=== PATIENT | female | born 1935 | race Caucasian/White ===

== ENCOUNTER → 2019-05-07 | Outpatient (CLI) | payer MEDICARE, BC ==
[~2019-05-07] MED LIST: ASPI325 PO; ASPI81CH PO; CAL-MAG TABLET1 EACH PO; CENTRUM SILVER1 EAC3 PO; DICLOFENAC SODIUM TOP; EXTRA STRENGTH500 MG PO; FURO40 PO; HYDR1TAB94 PO; IBUP400 PO; INSULANPEN SC; JANUMET XR 50-1 EACH PO; LOSA25 PO; METO50ER PO; OXYACE5T PO; PIOG30 PO; RANI150 PO; TRAM50 PO; Voltaren100 GM TP
== END | disposition home or self-care (01) ==
LOC: LAB SHORT 08:30 → PLD 08:30
DX: L57.0 Actinic keratosis (principal); L28.0 Lichen simplex chronicus; L08.89 Other specified local infections of the skin and subcutaneous tissue
CPT/HCPCS: 88305

== ENCOUNTER → 2020-08-26 | Outpatient (CLI) | payer MEDICARE, BC | LOC: LAB SHORT 07:41 → LAB 07:41 | DX: D04.62 Carcinoma in situ of skin of left upper limb, including shoulder (principal) | CPT/HCPCS: 88305 ==

== ENCOUNTER 2020-09-10 11:55 | Emergency (ER) | payer MEDICARE, BC ==
[~2020-09-10] VITALS: Ht 162.6 cm; Wt 108.9 kg
[2020-09-10 12:49] LABS: Source, Urine Catheter
[2020-09-10 12:56] LABS: Bilirubin, Urine Neg (Neg); Blood, Urine Neg (Neg); Glucose Qualitative, Urine Neg (Neg); Ketones, Urine Neg (Neg); Leukocyte Esterase, Urine Neg (Neg); Nitrite, Urine Neg (Neg); Protein, Urine Neg (Neg); Specific Gravity, Urine 1.015 (1.003-1.022); Urobilinogen, Urine NORM (Normal)
[2020-09-10 12:57] LABS: BASOPHILS ABSOLUTE AUTO 0.04 K/mm3 (0.00-0.23); BASOPHILS PERCENT AUTO 0 % (0-2); EOSINOPHILS ABSOLUTE AUTO 0.13 K/mm3 (0.00-0.68); EOSINOPHILS PERCENT AUTO 1 % (0-6); Hematocrit 36.5 % (33.0-51.0); Hemoglobin 11.5 g/dL (11.5-16.0); IMMATURE GRAN ABSOLUTE AUTO 0.02 K/mm3 (0.00-0.10); IMMATURE GRAN PERCENT AUTO 0 % (0-1); LYMPHOCYTES ABSOLUTE AUTO 2.34 K/mm3 (0.84-5.20); LYMPHOCYTES PERCENT AUTO 23 % (21-46); MONOCYTES ABSOLUTE AUTO 0.92 K/mm3 (0.16-1.47); MONOCYTES PERCENT AUTO 9 % (4-13); Mean Corpuscular HGB 28.5 pg (26.0-34.0); Mean Corpuscular HGB Conc 31.5 g/dL (31.5-36.5); Mean Corpuscular Volume 91 fL (80-100); Mean Platelet Volume 11.8 fL (9.1-12.4); NEUTROPHILS ABSOLUTE AUTO 6.76 K/mm3 (1.96-9.15); NEUTROPHILS PERCENT AUTO 66 % (41-73); Platelet Count 212 K/mm3 (150-400); RDW Coefficient Variation 16.9 % (11.7-14.2); RDW Standard Deviation 56.7 fL (35.1-46.3); Red Blood Cell Count 4.03 M/mm3 (3.80-5.20); White Blood Cell Count 10.21 K/mm3 (4.00-11.30)
[2020-09-10 13:10] LABS: Appearance, Urine Clear (Clear); Color, Urine Yellow (P-Yellow)
[2020-09-10 13:14] LABS: Alanine Aminotransfer (ALT/SGP 22 U/L (12-78); Albumin/Globulin Ratio 0.7 (0.8-1.8); Alk Phos 109 U/L (50-136); Anion Gap 7 mmol/L (6-16); Aspartate Aminotrans (AST/SGOT 25 U/L (12-37); Bilirubin, Total 0.4 mg/dL (0.1-1.0); Blood Urea Nitrogen 37 mg/dL (8-24); Bun/Creatinine Ratio 27.2 (12.0-20.0); CO2, Blood 31 mmol/L (21-32); Calcium, Blood 9.2 mg/dL (8.5-10.1); Chloride, Blood 99 mmol/L (98-108); Creatinine, Blood 1.36 mg/dL (0.40-1.00); Globulin, Blood 4.1 g/dL (2.2-4.0); Glomerular Filtration Rate 39 (60-); Glucose, Blood 162 mg/dL (70-99); Potassium, Blood 3.7 mmol/L (3.5-5.5); Sodium, Blood 137 mmol/L (136-145); Total Protein, Blood 7.1 g/dL (6.4-8.2); Troponin I <0.015 ng/mL (0.000-0.040)
== END 2020-09-10 14:55 | disposition home or self-care (01) ==
LOC: ER 11:55
PROVIDERS: Emergency Medicine
DX: R42 Dizziness and giddiness (principal); R53.1 Weakness; I10 Essential (primary) hypertension; G30.9 Alzheimer's disease, unspecified; F02.80 Dementia in other diseases classified elsewhere, unspecified severity, without behavioral disturbance, psychotic disturbance, mood disturbance, and anxiety; Z79.4 Long term (current) use of insulin; Z88.5 Allergy status to narcotic agent; Z79.899 Other long term (current) drug therapy
CPT/HCPCS: 36415; 80053; 81003; 84484; 85025; 93005; 93010; 96360; 96361; 99284-25

== ENCOUNTER → 2020-10-05 | Outpatient (CLI) | payer MEDICARE, BC | END | disposition home or self-care (01) | LOC: LAB SHORT 08:21 → LAB 08:21 | DX: D49.2 Neoplasm of unspecified behavior of bone, soft tissue, and skin (principal) | CPT/HCPCS: 88305 ==

== ENCOUNTER → 2021-06-08 | Outpatient (CLI) | payer MEDICARE, BC ==
[2021-06-08 19:35] LABS: Hematocrit 37.2 % (33.0-51.0); Mean Corpuscular HGB Conc 32.3 g/dL (31.5-36.5); Mean Corpuscular Volume 93 fL (80-100); Mean Platelet Volume 11.9 fL (9.1-12.4); Platelet Count 177 K/mm3 (150-400); RDW Coefficient Variation 16.3 % (11.7-14.2); RDW Standard Deviation 55.6 fL (35.1-46.3); White Blood Cell Count 9.64 K/mm3 (4.00-11.30)
[2021-06-08 20:09] LABS: Albumin, Blood 3.1 g/dL (3.4-5.0); Albumin/Globulin Ratio 0.8 (0.8-1.8); Bilirubin, Total 0.4 mg/dL (0.1-1.0); Bun/Creatinine Ratio 23.9 (12.0-20.0); Calcium, Blood 9.7 mg/dL (8.5-10.1); Creatinine, Blood 1.34 mg/dL (0.40-1.00); Globulin, Blood 3.9 g/dL (2.2-4.0); Potassium, Blood 3.8 mmol/L (3.5-5.5)
== END | disposition home or self-care (01) ==
LOC: LAB SHORT 16:05 → LAB 16:05
PROVIDERS: Family Medicine
DX: E11.9 Type 2 diabetes mellitus without complications (principal); I10 Essential (primary) hypertension
CPT/HCPCS: 80053; 83036; 85027

== ENCOUNTER → 2023-03-21 | Outpatient (CLI) | payer MEDICARE, BC ==
[2023-03-21 17:11] LABS: Albumin, Blood 3.3 g/dL (3.4-5.0); Albumin/Globulin Ratio 0.9 (0.8-1.8); Bilirubin, Total 0.6 mg/dL (0.1-1.0); Calcium, Blood 9.7 mg/dL (8.5-10.1); Creatinine, Blood 1.86 mg/dL (0.40-1.00); Globulin, Blood 3.7 g/dL (2.2-4.0); Potassium, Blood 4.1 mmol/L (3.5-5.5)
== END ==
LOC: LAB 10:15 → LAB SHORT 10:15 → EDSTATUS 03-06 11:50 → LAB FUT 03-06 11:50
PROVIDERS: Family Medicine
DX: E11.9 Type 2 diabetes mellitus without complications (principal); E78.2 Mixed hyperlipidemia
CPT/HCPCS: 80053; 83036

== ENCOUNTER 2024-06-09 07:03 | Emergency (ER) | payer MEDICARE, BC ==
[~2024-06-09] VITALS: Ht 154.9 cm; Wt 108.9 kg
[2024-06-09 07:11] VITALS: BP 123/76
[2024-06-09 07:42] LABS: BASOPHILS ABSOLUTE AUTO 0.05 K/mm3 (0.00-0.23); BASOPHILS PERCENT AUTO 1 % (0-2); EOSINOPHILS ABSOLUTE AUTO 0.38 K/mm3 (0.00-0.68); EOSINOPHILS PERCENT AUTO 4 % (0-6); Hematocrit 36.7 % (33.0-51.0); Hemoglobin 12.1 g/dL (11.5-16.0); IMMATURE GRAN ABSOLUTE AUTO 0.03 K/mm3 (0.00-0.10); IMMATURE GRAN PERCENT AUTO 0 % (0-1); LYMPHOCYTES ABSOLUTE AUTO 2.44 K/mm3 (0.84-5.20); LYMPHOCYTES PERCENT AUTO 28 % (21-46); MONOCYTES ABSOLUTE AUTO 0.76 K/mm3 (0.16-1.47); MONOCYTES PERCENT AUTO 9 % (4-13); Mean Corpuscular HGB 30.2 pg (26.0-34.0); Mean Corpuscular Volume 92 fL (80-100); NEUTROPHILS ABSOLUTE AUTO 4.93 K/mm3 (1.96-9.15); NEUTROPHILS PERCENT AUTO 58 % (41-73); Platelet Count 172 K/mm3 (150-400); RDW Coefficient Variation 14.6 % (11.7-14.2); RDW Standard Deviation 49.3 fL (35.1-46.3); Red Blood Cell Count 4.01 M/mm3 (3.80-5.20); White Blood Cell Count 8.59 K/mm3 (4.00-11.30)
[2024-06-09 08:02] LABS: Albumin, Blood 2.9 g/dL (3.4-5.0); Albumin/Globulin Ratio 0.9 (0.8-1.8); Bilirubin, Total 0.5 mg/dL (0.1-1.0); Creatinine, Blood 1.59 mg/dL (0.40-1.00); Globulin, Blood 3.2 g/dL (2.2-4.0); Potassium, Blood 3.8 mmol/L (3.5-5.5); Total Protein, Blood 6.1 g/dL (6.4-8.2)
[2024-06-09] MEDS ORDERED: SEMGLEE (Y100 UNIT/2 SC (16:27)
[2024-06-09] MEDS ORDERED: ASPI81CH PO (16:28)
[2024-06-09] MEDS ORDERED: ATOR10 PO (16:29)
[2024-06-09] MEDS ORDERED: FAMO20 PO (16:30)
[2024-06-09] MEDS ORDERED: GABA100 PO (16:31)
[2024-06-09] MEDS ORDERED: LOSARTAN-HCTZ1 EAC6 PO (16:32)
[2024-06-09] MEDS ORDERED: MAGNESIUM OXID400 M1 PO (16:33)
[2024-06-09] MEDS ORDERED: METO50ER PO (16:34)
[2024-06-09] MEDS ORDERED: KLOR-CON 1010 ME1 PO (16:35)
[2024-06-10] MEDS ORDERED: FURO40 PO (12:36)
[2024-06-10] MEDS ORDERED: FLUC200 PO (12:37)
[2024-06-10] MEDS ORDERED: KLAYESTA15 GM TOP (12:40)
[2024-06-10] MEDS ORDERED: Preservision S1 EACH PO (12:41)
[2024-06-10] MEDS ORDERED: Vitamin B Comple1 EA PO (12:42)
[2024-06-10] MEDS ORDERED: OSTEOBIFLEX PO (12:42)
[2024-06-10] MEDS ORDERED: CRANBERRY450 M1 PO (12:43)
[2024-06-10] MEDS ORDERED: CALCIUM 600-VI1 EAC3 PO (12:43)
[2024-06-10] MEDS ORDERED: Magnesium250 MG PO (12:49)
== END 2024-06-09 10:39 | disposition home or self-care (01) ==
LOC: ER 07:03
PROVIDERS: Emergency Medicine
DX: S01.01XA Laceration without foreign body of scalp, initial encounter (principal); S16.1XXA Strain of muscle, fascia and tendon at neck level, initial encounter; E11.9 Type 2 diabetes mellitus without complications; I10 Essential (primary) hypertension; E78.5 Hyperlipidemia, unspecified; M19.90 Unspecified osteoarthritis, unspecified site; W01.0XXA Fall on same level from slipping, tripping and stumbling without subsequent striking against object, initial encounter; Z79.82 Long term (current) use of aspirin; Z79.4 Long term (current) use of insulin; Z79.899 Other long term (current) drug therapy; Z88.5 Allergy status to narcotic agent
CPT/HCPCS: 70450; 72125; 80053; 85025; 93005; 93010

== ENCOUNTER 2024-06-09 13:11 | Inpatient (IN) | payer MEDICARE, BC ==
[~2024-06-09] VITALS: Ht 154.9 cm; Wt 107.7 kg
[~2024-06-09 13:11] MED LIST changes: -CENTRUM SILVER1 EAC3 PO; +DAILY-VITE1 EAC1 PO
[2024-06-09] MEDS ORDERED: Ondansetron HCl 2 MG / ML 2ML Vial IV ONE (14:20)
[2024-06-09] MEDS ORDERED: NS 1,000 ML IV SCH ×2 (14:20→16:20)
[2024-06-09] MEDS ORDERED: FLU VACC TS2024-25(6MOS UP)/PF 45 MCG/0.5 ML SYRINGE IM SCH (16:15)
[2024-06-09] MEDS ORDERED: Zolpidem Tartrate 5 MG Tab PO PRN (16:20)
[2024-06-09] MEDS ORDERED: Ondansetron HCl 2 MG / ML 2ML Vial IV PRN (16:20)
[2024-06-09] MEDS ORDERED: SEMGLEE (Y100 UNIT/2 SC (16:27)
[2024-06-09] MEDS ORDERED: ASPI81CH PO (16:28)
[2024-06-09] MEDS ORDERED: ATOR10 PO (16:29)
[2024-06-09] MEDS ORDERED: Insulin Human Lispro 100 Units/ML 3ML Syringe SC SCH (16:30)
[2024-06-09] MEDS ORDERED: FAMO20 PO (16:30)
[2024-06-09] MEDS ORDERED: GABA100 PO (16:31)
[2024-06-09] MEDS ORDERED: LOSARTAN-HCTZ1 EAC6 PO (16:32)
[2024-06-09] MEDS ORDERED: MAGNESIUM OXID400 M1 PO (16:33)
[2024-06-09] MEDS ORDERED: METO50ER PO (16:34)
[2024-06-09] MEDS ORDERED: KLOR-CON 1010 ME1 PO (16:35)
[2024-06-09] MEDS ORDERED: Metoclopramide HCl 5MG / ML 2ML Vial IV PRN (18:15)
[2024-06-09 18:28] VITALS: BP 140/45
--- NOTE | 2024-06-09 19:11 | NUR ---
ADMIT PT ADMITTED FROM ED AT 1815 FOR SYNCOPE AND FALL AT HOME. PT ALERT AND ORIENTED X 4, VSS, RA. BEDREST ORDERED. PT CAME UP TO UNIT WITH POL STATING COMFORT CARE PHOTO COPY TAKEN AND PLACED IN CHART. SKIN ASSESSMENT DONE WITH CHANEL VASQUEZ, EXCORIATION UNDER BOTH BREASTS AND PANIS WITH MOISTURE, LACERATION ON FOREHEAD R/T FALL AT HOME, SCATTERED BRUISING AND SCABS THROUGHOUT. PT ORIENTED TO ROOM, CALL LIGHT IN REACH, BED IN LOW POSITION, MEAL PROVIDED.
[2024-06-09 19:22] VITALS: BP 136/46
[2024-06-09] MEDS ORDERED: Acetaminophen 500 MG Tab PO PRN (19:35)
[2024-06-09] MEDS ORDERED: Famotidine 10 MG/ML 2ML Vial IV SCH (21:00)
[2024-06-09] MEDS ORDERED: Miconazole Nitrate 2% 85 GM PWD TOP SCH (21:00)
[2024-06-09] MEDS ORDERED: Insulin Glargine-Yfgn 100 Unit/mL 3 ML SYR SC SCH (21:00)
[2024-06-09] MEDS ORDERED: Docusate Sodium 100 MG Cap PO SCH (21:00)
[2024-06-09] MEDS ORDERED: Sennosides 8.6 MG Tab PO SCH (21:00)
[2024-06-10 02:20] VITALS: BP 129/45
[2024-06-10 05:21] LABS: BASOPHILS ABSOLUTE AUTO 0.04 K/mm3 (0.00-0.23); BASOPHILS PERCENT AUTO 1 % (0-2); EOSINOPHILS ABSOLUTE AUTO 0.21 K/mm3 (0.00-0.68); EOSINOPHILS PERCENT AUTO 3 % (0-6); Hematocrit 31.9 % (33.0-51.0); Hemoglobin 10.3 g/dL (11.5-16.0); IMMATURE GRAN ABSOLUTE AUTO 0.02 K/mm3 (0.00-0.10); IMMATURE GRAN PERCENT AUTO 0 % (0-1); LYMPHOCYTES ABSOLUTE AUTO 2.09 K/mm3 (0.84-5.20); LYMPHOCYTES PERCENT AUTO 24 % (21-46); MONOCYTES ABSOLUTE AUTO 0.83 K/mm3 (0.16-1.47); MONOCYTES PERCENT AUTO 10 % (4-13); Mean Corpuscular HGB Conc 32.3 g/dL (31.5-36.5); Mean Corpuscular Volume 93 fL (80-100); Mean Platelet Volume 11.8 fL (9.1-12.4); NEUTROPHILS ABSOLUTE AUTO 5.36 K/mm3 (1.96-9.15); NEUTROPHILS PERCENT AUTO 63 % (41-73); Platelet Count 147 K/mm3 (150-400); RDW Coefficient Variation 15.1 % (11.7-14.2); RDW Standard Deviation 51.4 fL (35.1-46.3); Red Blood Cell Count 3.43 M/mm3 (3.80-5.20); White Blood Cell Count 8.55 K/mm3 (4.00-11.30)
[2024-06-10 05:44] LABS: Albumin, Blood 2.6 g/dL (3.4-5.0); Albumin/Globulin Ratio 0.9 (0.8-1.8); Bilirubin, Total 0.4 mg/dL (0.1-1.0); Bun/Creatinine Ratio 20.3 (12.0-20.0); Calcium, Blood 8.5 mg/dL (8.5-10.1); Creatinine, Blood 1.72 mg/dL (0.40-1.00); Globulin, Blood 2.8 g/dL (2.2-4.0); Potassium, Blood 3.9 mmol/L (3.5-5.5); Total Protein, Blood 5.4 g/dL (6.4-8.2)
--- NOTE | 2024-06-10 05:49 | NUR ---
NOC SUMMARRY- NO DIZZINESS REPORTED. PT GIVEN BED BATH AND ORDERED DESENEX WAS APPLIED TO PT PANUS, GROIN AND UNDER BREASTS. PT GODINEZ TX W/ ORDERED TYLENOL W/ RELIEF. PT STATES SHE HAS DIFFICULTY TAKING MEDS AND REQUESTED MEDS CRUSHED IN APPLESAUCE. BANDAID APPLIED TO SMALL LAC ON FOREHEAD. PT HAS BEEN VOIDING VIA PUREWICK DEVICE. PT HAS BEEN TURNING SELF. HEEL PROTECTORS APPLIED DUE TO SOME REDNESS. PT TOLERATING PO FLUIDS. CALL LIGHT IN REACH.
[2024-06-10 07:17] VITALS: BP 126/36
[2024-06-10] MEDS ORDERED: Potassium Chloride 10 Meq Tablet SA PO SCH (09:00)
[2024-06-10] MEDS ORDERED: Insulin Glargine-Yfgn 100 Unit/mL 3 ML SYR SC SCH (09:00)
[2024-06-10] MEDS ORDERED: Metoprolol Succinate 50 MG TABCR PO SCH (09:00)
[2024-06-10] MEDS ORDERED: Gabapentin 100 MG Cap PO SCH (09:00)
[2024-06-10] MEDS ORDERED: Atorvastatin 10 MG Tab PO SCH (09:00)
[2024-06-10] MEDS ORDERED: Heparin Sodium,Porcine 5,000 UNIT/0.5 ML SDV SC SCH (09:00)
[2024-06-10] MEDS ORDERED: Magnesium Oxide 400 MG Tab PO SCH (09:00)
[2024-06-10] MEDS ORDERED: FURO40 PO (12:36)
[2024-06-10] MEDS ORDERED: FLUC200 PO (12:37)
[2024-06-10] MEDS ORDERED: KLAYESTA15 GM TOP (12:40)
[2024-06-10] MEDS ORDERED: Preservision S1 EACH PO (12:41)
[2024-06-10] MEDS ORDERED: OSTEOBIFLEX PO (12:42)
[2024-06-10] MEDS ORDERED: Vitamin B Comple1 EA PO (12:42)
[2024-06-10] MEDS ORDERED: CALCIUM 600-VI1 EAC3 PO (12:43)
[2024-06-10] MEDS ORDERED: CRANBERRY450 M1 PO (12:43)
[2024-06-10] MEDS ORDERED: Magnesium250 MG PO (12:49)
[2024-06-10 14:59] VITALS: BP 124/45
--- NOTE | 2024-06-10 18:58 | NUR ---
PT WORKED WITH PT, DIZZY WHEN ATTEMPED TO STAND, BACK TO BED. HEAD AND NECK PAIN CONTROLLED WITH PRN TYLENOL X2. PUREWIK IN PLACE, NO BOWEL MOVEMENT THIS SHIFT. DAUGHER AT BEDSIDE, COOPERATIVE WITH CARE, CALLS APPROPRIATELY.
[2024-06-10 19:38] VITALS: BP 130/44
[2024-06-11 02:32] VITALS: BP 124/42
--- NOTE | 2024-06-11 04:38 | NUR ---
NOC SUMMARY- PT HAD NO ISSUES THIS SHIFT. PT HAS RESTED COMFORTABLY. PT VOIDING AND HAD A LARGE BM. PT IS TOLERATING PO. PT GODINEZ AND NECK ACHE TX WITH TYLENOL AND ICE BAGS. PT REPOSITIONED TOLERATED. PT CURRENTLY SLEEPING IN NO DISTRESS. CALL LIGHT IN REACH.
[2024-06-11 07:13] VITALS: BP 135/40
[2024-06-11 09:34] LABS: BASOPHILS ABSOLUTE AUTO 0.03 K/mm3 (0.00-0.23); BASOPHILS PERCENT AUTO 0 % (0-2); EOSINOPHILS ABSOLUTE AUTO 0.54 K/mm3 (0.00-0.68); EOSINOPHILS PERCENT AUTO 5 % (0-6); Hematocrit 32.6 % (33.0-51.0); Hemoglobin 10.7 g/dL (11.5-16.0); IMMATURE GRAN ABSOLUTE AUTO 0.03 K/mm3 (0.00-0.10); IMMATURE GRAN PERCENT AUTO 0 % (0-1); LYMPHOCYTES ABSOLUTE AUTO 2.32 K/mm3 (0.84-5.20); LYMPHOCYTES PERCENT AUTO 21 % (21-46); MONOCYTES ABSOLUTE AUTO 0.93 K/mm3 (0.16-1.47); MONOCYTES PERCENT AUTO 8 % (4-13); Mean Corpuscular HGB 30.7 pg (26.0-34.0); Mean Corpuscular HGB Conc 32.8 g/dL (31.5-36.5); Mean Corpuscular Volume 94 fL (80-100); Mean Platelet Volume 11.7 fL (9.1-12.4); NEUTROPHILS ABSOLUTE AUTO 7.48 K/mm3 (1.96-9.15); NEUTROPHILS PERCENT AUTO 66 % (41-73); Platelet Count 122 K/mm3 (150-400); RDW Coefficient Variation 14.9 % (11.7-14.2); RDW Standard Deviation 50.9 fL (35.1-46.3); Red Blood Cell Count 3.48 M/mm3 (3.80-5.20); White Blood Cell Count 11.33 K/mm3 (4.00-11.30)
[2024-06-11 09:56] LABS: Albumin, Blood 2.4 g/dL (3.4-5.0); Albumin/Globulin Ratio 0.9 (0.8-1.8); Bilirubin, Total 0.3 mg/dL (0.1-1.0); Bun/Creatinine Ratio 18.4 (12.0-20.0); Calcium, Blood 8.3 mg/dL (8.5-10.1); Creatinine, Blood 1.47 mg/dL (0.40-1.00); Globulin, Blood 2.8 g/dL (2.2-4.0); Potassium, Blood 4.2 mmol/L (3.5-5.5); Total Protein, Blood 5.2 g/dL (6.4-8.2)
[2024-06-11 15:49] VITALS: BP 130/46
--- NOTE | 2024-06-11 18:38 | NUR ---
REPORT RECEIVED VERIFIED A/O VSS VERY PLEASENT AND COOPERATIVE WITH CARE. MINIMAL C/O PAIN TO NECK, ICE PACK APPLIED AND MEDICATED PER MAR. PT HAS HAD MULTIPLE SOFT BM, AND IS URINATING VIA PURWIC. SKIN INTACT BUT VERY RED AND IRRITAED, SKIN COVERED WITH POWDER. CALL LIGHT WITHIN REACH PT ABLE TO MAKE NEEDS KNOWN
[2024-06-11 19:17] VITALS: BP 138/51
[2024-06-12 02:16] VITALS: BP 138/47
[2024-06-12 05:35] LABS: BASOPHILS ABSOLUTE AUTO 0.04 K/mm3 (0.00-0.23); BASOPHILS PERCENT AUTO 0 % (0-2); EOSINOPHILS ABSOLUTE AUTO 0.66 K/mm3 (0.00-0.68); EOSINOPHILS PERCENT AUTO 7 % (0-6); Hematocrit 31.7 % (33.0-51.0); Hemoglobin 10.1 g/dL (11.5-16.0); IMMATURE GRAN ABSOLUTE AUTO 0.02 K/mm3 (0.00-0.10); IMMATURE GRAN PERCENT AUTO 0 % (0-1); LYMPHOCYTES ABSOLUTE AUTO 2.13 K/mm3 (0.84-5.20); LYMPHOCYTES PERCENT AUTO 21 % (21-46); MONOCYTES ABSOLUTE AUTO 0.88 K/mm3 (0.16-1.47); MONOCYTES PERCENT AUTO 9 % (4-13); Mean Corpuscular HGB 30.1 pg (26.0-34.0); Mean Corpuscular HGB Conc 31.9 g/dL (31.5-36.5); Mean Corpuscular Volume 95 fL (80-100); Mean Platelet Volume 11.1 fL (9.1-12.4); NEUTROPHILS ABSOLUTE AUTO 6.49 K/mm3 (1.96-9.15); NEUTROPHILS PERCENT AUTO 64 % (41-73); Platelet Count 140 K/mm3 (150-400); RDW Standard Deviation 52.2 fL (35.1-46.3); Red Blood Cell Count 3.35 M/mm3 (3.80-5.20); White Blood Cell Count 10.22 K/mm3 (4.00-11.30)
--- NOTE | 2024-06-12 05:46 | NUR ---
Patient resting quietly in bed on room air, turning with one person assist in bed, incontinent of bowel and bladder overnight. PRN pain medication and ice packs given once each overnight. Patient able to make needs known via call light.
[2024-06-12 05:57] LABS: Albumin, Blood 2.4 g/dL (3.4-5.0); Albumin/Globulin Ratio 0.8 (0.8-1.8); Bilirubin, Total 0.3 mg/dL (0.1-1.0); Bun/Creatinine Ratio 16.9 (12.0-20.0); Calcium, Blood 7.9 mg/dL (8.5-10.1); Creatinine, Blood 1.42 mg/dL (0.40-1.00); Globulin, Blood 2.9 g/dL (2.2-4.0); Potassium, Blood 4.1 mmol/L (3.5-5.5); Total Protein, Blood 5.3 g/dL (6.4-8.2)
[2024-06-12 07:40] VITALS: BP 152/49
[2024-06-12] MEDS ORDERED: HydroCHLOROthiazide 25 mg Tab PO SCH (10:00)
[2024-06-12] MEDS ORDERED: Losartan Potassium 25 MG Tab PO SCH ×2 (10:00)
[2024-06-12] MEDS ORDERED: Fluconazole 100 MG Tab PO SCH (11:00)
[2024-06-12 15:12] VITALS: BP 140/49
--- NOTE | 2024-06-12 19:24 | NUR ---
pt had an uneventful day, lots of family in, had a stool today via bedpan, no acute changes this shift. call light in reach.
[2024-06-12 19:37] VITALS: BP 146/44
[2024-06-13 03:31] VITALS: BP 140/44
--- NOTE | 2024-06-13 04:51 | NUR ---
PT IS A 88 YO DNR WOMAN. PT WAS ADMITTED 06/09/24 [facility]. PT HAS HAD A HIST OF FALLS AT HER HOME, SHE LIVES ALONE. SHE HAS A RIGHT FAITH WOUND WITH SUTURES AND A BRUISED FOREHEAD. PT IS BED BOUND BUT A&OX4. PT IS ON TELE SVT SR IN THE 70'S. PT DID HAVE A 6 SECOND EPISODE OF V-TACH TONIGHT. PT IS INCONTINET TO URINE AND USES A PURE WICK. PT WILL CALL TO USE A BED HUTCHINS FOR STOOL. MEPILEX ON COCCYX. PT HAS A HIST OF TYPE 2 DIABETES AND KIDNEY FAILURE. PT HAS RESTED MOST OF THE SHIFT AND MAKES HER NEEDS KNOWN. CALL LIGHT IN REACH.
[2024-06-13 07:46] LABS: BASOPHILS ABSOLUTE AUTO 0.05 K/mm3 (0.00-0.23); BASOPHILS PERCENT AUTO 1 % (0-2); EOSINOPHILS ABSOLUTE AUTO 0.55 K/mm3 (0.00-0.68); EOSINOPHILS PERCENT AUTO 6 % (0-6); Hematocrit 30.9 % (33.0-51.0); Hemoglobin 9.9 g/dL (11.5-16.0); IMMATURE GRAN ABSOLUTE AUTO 0.03 K/mm3 (0.00-0.10); IMMATURE GRAN PERCENT AUTO 0 % (0-1); LYMPHOCYTES ABSOLUTE AUTO 1.84 K/mm3 (0.84-5.20); LYMPHOCYTES PERCENT AUTO 19 % (21-46); MONOCYTES ABSOLUTE AUTO 0.72 K/mm3 (0.16-1.47); MONOCYTES PERCENT AUTO 7 % (4-13); Mean Corpuscular HGB 30.9 pg (26.0-34.0); Mean Corpuscular Volume 97 fL (80-100); Mean Platelet Volume 11.7 fL (9.1-12.4); NEUTROPHILS PERCENT AUTO 68 % (41-73); Platelet Count 149 K/mm3 (150-400); RDW Coefficient Variation 15.3 % (11.7-14.2); RDW Standard Deviation 53.7 fL (35.1-46.3); White Blood Cell Count 9.89 K/mm3 (4.00-11.30)
[2024-06-13 07:53] VITALS: BP 125/49
[2024-06-13 08:06] LABS: Albumin, Blood 2.3 g/dL (3.4-5.0); Albumin/Globulin Ratio 0.8 (0.8-1.8); Bilirubin, Total 0.3 mg/dL (0.1-1.0); Calcium, Blood 8.1 mg/dL (8.5-10.1); Creatinine, Blood 1.31 mg/dL (0.40-1.00); Total Protein, Blood 5.3 g/dL (6.4-8.2)
[2024-06-13 11:46] VITALS: BP 136/50
[2024-06-13 16:08] VITALS: BP 158/52
--- NOTE | 2024-06-13 17:57 | NUR ---
SHIFT NOTE: PT A/OX4 ABLE TO MAKE HER NEEDS KNOWN AND USES THE CALL LIGHT APPROPRIATELY. SHE IS ON TELE IN NSR WITH NO ACUTE EVENTS T/O SHIFT. SHE DENIES CHEST PAIN/PRESSURE. SHE IS ON RA WITH NO REPORTS OF SOB. SHE HAS A PUREWICK DRAINING TO SUCTION. SHE REPORTS SHE DOES NOT FEEL SAFE RETURNING HOME DUE TO THE CARE SHE IS RECEIVING FROM HER CAREGIVER. CASE MANAGEMENT NOTIFIED. FAMILY AT BEDSIDE T/O SHIFT ENCOURAGING PATIENT TO CONTINUE PT EXERCISES. PT CONTINUES TO EXPERIENCE DIZZINESS WHEN SHE SITS UP. SHE HAS BEEN EDUCATED AND ENCOURAGED TO MOVE IN BED TO PREVENT SKIN BREAKDOWN. CALL LIGHT IN REACH, WILL CONTINUE TO MONITOR AND REPORT TO ONCOMING RN
[2024-06-13 21:08] VITALS: BP 145/67
[2024-06-14 05:30] VITALS: BP 130/42
[2024-06-14 05:51] LABS: BASOPHILS ABSOLUTE AUTO 0.03 K/mm3 (0.00-0.23); BASOPHILS PERCENT AUTO 0 % (0-2); EOSINOPHILS ABSOLUTE AUTO 0.36 K/mm3 (0.00-0.68); EOSINOPHILS PERCENT AUTO 4 % (0-6); Hematocrit 30.4 % (33.0-51.0); Hemoglobin 9.8 g/dL (11.5-16.0); IMMATURE GRAN ABSOLUTE AUTO 0.04 K/mm3 (0.00-0.10); IMMATURE GRAN PERCENT AUTO 0 % (0-1); LYMPHOCYTES ABSOLUTE AUTO 2.11 K/mm3 (0.84-5.20); LYMPHOCYTES PERCENT AUTO 21 % (21-46); MONOCYTES ABSOLUTE AUTO 0.81 K/mm3 (0.16-1.47); MONOCYTES PERCENT AUTO 8 % (4-13); Mean Corpuscular HGB 30.1 pg (26.0-34.0); Mean Corpuscular HGB Conc 32.2 g/dL (31.5-36.5); Mean Corpuscular Volume 93 fL (80-100); Mean Platelet Volume 11.5 fL (9.1-12.4); NEUTROPHILS ABSOLUTE AUTO 6.95 K/mm3 (1.96-9.15); NEUTROPHILS PERCENT AUTO 67 % (41-73); Platelet Count 141 K/mm3 (150-400); RDW Coefficient Variation 15.5 % (11.7-14.2); Red Blood Cell Count 3.26 M/mm3 (3.80-5.20)
[2024-06-14 06:24] LABS: Albumin, Blood 2.2 g/dL (3.4-5.0); Albumin/Globulin Ratio 0.7 (0.8-1.8); Bilirubin, Total 0.4 mg/dL (0.1-1.0); Bun/Creatinine Ratio 13.5 (12.0-20.0); Calcium, Blood 8.6 mg/dL (8.5-10.1); Creatinine, Blood 1.26 mg/dL (0.40-1.00); Globulin, Blood 3.3 g/dL (2.2-4.0); Total Protein, Blood 5.5 g/dL (6.4-8.2)
[2024-06-14 07:10] VITALS: BP 137/45
[2024-06-14 09:10] VITALS: BP 124/59
[2024-06-14 11:21] LABS: SARS-Cov-2 (COVID-19) PCR, MMC NEGATIVE (NEGATIVE)
[2024-06-14 15:09] VITALS: BP 139/45
[2024-06-14 17:17] LABS: Source, Urine Clean Catch
[2024-06-14 17:20] LABS: Appearance, Urine Hazy (Clear); Bilirubin, Urine Neg (Neg); Blood, Urine 3+ (Neg); Color, Urine Yellow (P-Yellow); Glucose Qualitative, Urine Neg (Neg); Ketones, Urine Neg (Neg); Leukocyte Esterase, Urine 3+ (Neg); Nitrite, Urine Neg (Neg); Protein, Urine 2+ (Neg); Urobilinogen, Urine NORM (Normal); pH, Urine 6.5 (5.0-8.0)
[2024-06-14 17:29] LABS: Bacteria Many /hpf; White Blood Cells, Urine 50-100 /hpf (0-5)
[2024-06-14 17:30] LABS: Amorphous Light (0-Heavy); Squamous Epithelial Cells Mod /hpf (Few)
--- NOTE | 2024-06-14 19:12 | NUR ---
PT A&Ox4 WITH FLAT AFFECT. PT STILL REPORTS SEVERE DIZZINESS WHEN REPOSITIONING AND WHEN WORKING WITH PT. URNILYSIS COLLECTED VIA CLEAN BEDPAN. PURWICK IN PLACE AT THIS TIME. NO C/O PAIN BUT PT DOES HAVE HEAT PACK IN PLACE FOR SORE NECK. VSS. BED IN LOWEST POSITION AND CALL LIGHT IN REACH.
--- NOTE | 2024-06-14 19:18 | NUR ---
RECEIVED BEDSIDE REPORT. NO NEEDS AT THIS TIME. CALL LT IN REACH
[2024-06-14 19:35] VITALS: BP 145/48
--- NOTE | 2024-06-14 20:40 | NUR ---
MEDS GIVEN WHOLE WITHOUT DIFFICULTY. PT ALSO HAD A LARGE LOOSE STOOL, DECLINED BOWEL CARE. MEDICATED POWDER SPRINKLED IN PANIS AND UNDERNEATH BREASTS WITH WICKING FABRIC. PT REPOSITIONED FOR COMFORT. NO OTHER NEEDS. CALL LT IN REACH.
--- NOTE | 2024-06-14 22:16 | NUR ---
PT RESTING QUIETLY. CALL LT IN REACH.
[2024-06-14] MEDS ORDERED: Benzonatate 100 MG Cap PO PRN (22:35)
--- NOTE | 2024-06-15 00:15 | NUR ---
PT IS RESTING QUIETLY. CALL LT IN REACH.
--- NOTE | 2024-06-15 03:54 | NUR ---
SHIFT SUMMARY: PT RESTED WELL. NO COMPLAINTS OF SOB. RECEIVED AN ORDER FOR TESSALON FOR COUGH, GIVEN ONCE, APPEARED TO GIVE SOME RELIEF. PT DECLINED BOWEL CARE D/T HAVING A LOOSE STOOL. REDNESS IN PANIS AREA AND UNDER BREASTS ARE IMPROVING. WICKING FABRIC PROVIDING EXTRA PROTECTION TO WICK AWAY MOISTURE PLUS THE MEDICATED POWDER. NO COMPLAINTS OF DIZZINESS WITH REPOSITIONING AND TURNING. CBG 164. NO ACUTE CHANGES. WILL CONTINUE TO PROVIDE CARE UNTIL SHIFT REPORT TO ONCOMING NURSE. CALL LT IN REACH.
[2024-06-15 04:30] VITALS: BP 118/45
--- NOTE | 2024-06-15 05:07 | NUR ---
REPOSITIONED PT FOR COMFORT. PT STATES THAT THE TESSALON HELP SOME WITH HER COUGH. NO OTHER NEEDS. CALL LT IN REACH.
[2024-06-15 07:28] VITALS: BP 136/48
[2024-06-15 15:03] VITALS: BP 141/53
--- NOTE | 2024-06-15 15:47 | NUR ---
PHYSICIAN CONTACT: THIS AFTERNOON, PT'S FAMILY ADVISED THIS RN THAT PT C/O PAIN W/ URINATION T/O THE DAY YESTERDAY. CALL PLACED TO MD GASPAR REGARDING PT'S URINALYSIS RESULTS AND PENDING CULTURES. TO REVIEW & PLACE ORDERS.
--- NOTE | 2024-06-15 16:48 | NUR ---
END OF SHIFT NOTE: NO ACUTE EVENTS THIS SHIFT. PT A/OX4, ABLE TO CALL APPROPRIATELY & COMMUNICATE NEEDS W/ STAFF. PT REPORTS DIZZINESS W/ POSITION CHANGES, STATES THIS IS ABOUT THE SAME THAT IT WAS YESTERDAY. VSS. HR 70'S, SINUS RHYTHM ON TELE. SBP 130-140'S, DENIES CHEST PAIN/PRESSURE. SPO2 >90% ON ROOM AIR, RESPIRATIONS EVEN & UNLABORED. C/O RESTORATION ECOLOGIST COUGH, REPORTS IMPROVEMENT W/ TESSALON PER EMAR. AFEBRILE. PUREWICK IN PLACE, DRAINING YOUNG URINE TO SUCTION. BM THIS SHIFT ON BEDPAN. TOLERATING PO INTAKE. PT BEDREST AT THIS TIME DUE TO DIZZINESS. ASSISTANCE PROVIDED W/ REPOSITIONING. ANTIFUNGAL APPLIED TO PANUS & UNDER BREASTS, WICKING FABRIC REPLACED. NO OTHER NEEDS AT THIS TIME. CALL LIGHT IN REACH.
[2024-06-15 20:26] VITALS: BP 142/53
[2024-06-15] MEDS ORDERED: Amoxicillin/Clavulanate K 875 MG Tab PO SCH (21:00)
[2024-06-16 03:07] VITALS: BP 141/62
--- NOTE | 2024-06-16 04:08 | NUR ---
SHIFT SUMMARY TANVIR WAS ALERT AND FULLY ORIENTED ON ASSESMENT. NO C/O OF DIZZINESS TONIGHT, PURWIC IN PLACE, SKIN CARE PROVIDED TO EXCORIATED PANNUS AND UNDER BREASTS. PT WITH DRY CONSISTENT COUGH, IMPROVED WITH TESSALON. NO ACUTE EVENTS TONIGHT. NO NOTED CHANGES TO PT CONDITION.
[2024-06-16 04:52] LABS: BASOPHILS ABSOLUTE AUTO 0.04 K/mm3 (0.00-0.23); BASOPHILS PERCENT AUTO 1 % (0-2); EOSINOPHILS ABSOLUTE AUTO 0.34 K/mm3 (0.00-0.68); EOSINOPHILS PERCENT AUTO 4 % (0-6); Hematocrit 29.3 % (33.0-51.0); Hemoglobin 9.3 g/dL (11.5-16.0); IMMATURE GRAN ABSOLUTE AUTO 0.02 K/mm3 (0.00-0.10); IMMATURE GRAN PERCENT AUTO 0 % (0-1); LYMPHOCYTES ABSOLUTE AUTO 1.63 K/mm3 (0.84-5.20); LYMPHOCYTES PERCENT AUTO 19 % (21-46); MONOCYTES PERCENT AUTO 10 % (4-13); Mean Corpuscular HGB 29.3 pg (26.0-34.0); Mean Corpuscular HGB Conc 31.7 g/dL (31.5-36.5); Mean Corpuscular Volume 92 fL (80-100); Mean Platelet Volume 11.3 fL (9.1-12.4); NEUTROPHILS ABSOLUTE AUTO 5.83 K/mm3 (1.96-9.15); NEUTROPHILS PERCENT AUTO 67 % (41-73); NRBC ABSOLUTE 0.02 K/mm3 (0.00-0.02); NRBC Auto 0.2 /100 WBC (0.0-0.2); Platelet Count 152 K/mm3 (150-400); RDW Coefficient Variation 15.5 % (11.7-14.2); Red Blood Cell Count 3.17 M/mm3 (3.80-5.20); White Blood Cell Count 8.76 K/mm3 (4.00-11.30)
[2024-06-16 05:11] LABS: Albumin/Globulin Ratio 0.5 (0.8-1.8); Bilirubin, Total 0.5 mg/dL (0.1-1.0); Bun/Creatinine Ratio 17.6 (12.0-20.0); Calcium, Blood 8.5 mg/dL (8.5-10.1); Creatinine, Blood 1.36 mg/dL (0.40-1.00); Globulin, Blood 3.7 g/dL (2.2-4.0); Potassium, Blood 4.1 mmol/L (3.5-5.5); Total Protein, Blood 5.7 g/dL (6.4-8.2)
[2024-06-16 07:17] VITALS: BP 140/55
--- NOTE | 2024-06-16 11:55 | NUR ---
SHIFT SUMMARY- PT ALERT AND ORIENTED, ON BED REST D/T SPINNING SENSATION WHEN SHE MOVES AT ALL. NOTED ON MORNING ASSESSMENT THE PT HAS AN AUDIBLE MURMUR, EBER LOBE WHEEZE AND HER LEFT PEDAL PULSE WAS NOT PALPABLE, FOUND WITH DOPPLER THOUGH. LLE IS WARM, WITH GOOD CAP REFILL. PT DENIES ANY PAIN IN THE EXTREMITY.
[2024-06-16 15:08] VITALS: BP 136/47
--- NOTE | 2024-06-16 18:36 | NUR ---
SHIFT SUMMARY. PATIENT IS A&OX4. PATIENT WORKED WITH PT IN ROOM DOING EXERCISES IN BED D/T DIZZINESS WITH MOVEMENT. PATIENT HAD FRIENDS AND FAMILY IN TO VISIT TODAY. GRAND-DAUGHTERS NAME AND NUMBER IS ON BOARD IN ROOM IF PATIENT NEEDS ANYTHING-WILL BE IN TOMORROW. PATIENT HAD A BED BATH TODAY. PATIENT HAS REDDNESS TO BREAST FOLDS AND ABDOMINAL CREASE-CLEANED AND POWDER APPLIED. PATIENT HAS TELE ON WITH LEADS IN PLACE. PATIENT CALLS APPROPRIATELY AND IS ABLE TO MAKE HER NEEDS KNOWN. BED IS LOCKED IN THE LOWEST POSITION [facility] CALL LIGHT IN REACH. CARE IS ONGOING.
[2024-06-16 19:56] VITALS: BP 138/46
[2024-06-17 03:45] VITALS: BP 142/53
--- NOTE | 2024-06-17 05:29 | NUR ---
SHIFT SUMMARY PT A&OX4 AND ANSWERS QUESTIONS APPROPRIATELY. PT IS ON TELEMETRY RUNNING NSR. PT COMPLAINS OF COUGH, TESSALON PEARLS GIVEN AND PT FAMILY BROUGHT PT COUGH DROPS FROM HOME. PT VSS, O COMPLAINTS OF CP/PRESSURE OR SOB. PT REFUSED 2100 HEPARIN INJECTION. REMAINING SCHEDULED MEDICATIONS ADMINISTERED. PT REPOSITIONED Q2HRS. NO ACUTE EVENTS AT THIS TIME. PT LEFT IN A POSITION OF SAFETY WITH PROPER FALL PRECAUTIONS IN PLACE AND CALL LIGHT IN REACH.
[2024-06-17 05:45] LABS: BASOPHILS ABSOLUTE AUTO 0.03 K/mm3 (0.00-0.23); BASOPHILS PERCENT AUTO 0 % (0-2); EOSINOPHILS ABSOLUTE AUTO 0.48 K/mm3 (0.00-0.68); EOSINOPHILS PERCENT AUTO 6 % (0-6); Hematocrit 30.4 % (33.0-51.0); Hemoglobin 9.9 g/dL (11.5-16.0); IMMATURE GRAN ABSOLUTE AUTO 0.03 K/mm3 (0.00-0.10); IMMATURE GRAN PERCENT AUTO 0 % (0-1); LYMPHOCYTES PERCENT AUTO 22 % (21-46); MONOCYTES ABSOLUTE AUTO 0.94 K/mm3 (0.16-1.47); MONOCYTES PERCENT AUTO 11 % (4-13); Mean Corpuscular HGB 30.2 pg (26.0-34.0); Mean Corpuscular HGB Conc 32.6 g/dL (31.5-36.5); Mean Corpuscular Volume 93 fL (80-100); Mean Platelet Volume 10.7 fL (9.1-12.4); NEUTROPHILS ABSOLUTE AUTO 5.05 K/mm3 (1.96-9.15); NEUTROPHILS PERCENT AUTO 61 % (41-73); Platelet Count 167 K/mm3 (150-400); RDW Coefficient Variation 15.5 % (11.7-14.2); RDW Standard Deviation 52.9 fL (35.1-46.3); Red Blood Cell Count 3.28 M/mm3 (3.80-5.20); White Blood Cell Count 8.33 K/mm3 (4.00-11.30)
[2024-06-17 06:09] LABS: Albumin/Globulin Ratio 0.5 (0.8-1.8); Bilirubin, Total 0.6 mg/dL (0.1-1.0); Bun/Creatinine Ratio 16.2 (12.0-20.0); Calcium, Blood 8.2 mg/dL (8.5-10.1); Creatinine, Blood 1.36 mg/dL (0.40-1.00); Globulin, Blood 3.9 g/dL (2.2-4.0); Phosphorus, Blood 3.5 mg/dL (2.5-4.9); Potassium, Blood 4.1 mmol/L (3.5-5.5); Total Protein, Blood 5.9 g/dL (6.4-8.2)
[2024-06-17 07:20] VITALS: BP 149/46
[2024-06-17] MEDS ORDERED: Guaifenesin/Dextromethorphan Syrup 5 ML UDC PO PRN (11:35)
[2024-06-17] MEDS ORDERED: Meclizine HCl 25 MG Tab PO PRN (12:00)
[2024-06-17] MEDS ORDERED: Meclizine HCl 25 MG Tab PO ONE (12:00)
[2024-06-17 16:13] VITALS: BP 179/70
[2024-06-17 16:17] VITALS: BP 154/62
--- NOTE | 2024-06-17 18:58 | NUR ---
SHIFT SUMMARY PAITENT ALERT AND INTERACTIVE. PATIENT RESISTANT ABOUT AMBULATING AT START OF SHIFT. PATIENT UP TO COMMODE MULTIPLE TIMES THROUGHOUT THE SHIFT. PATIENT VOIDING AND HAD A STOOL. SKIN CARE PROVIDED MULTIPLE TIMES T/O SHIFT. PATIENT STARTED ON MECLIZINE FOR DIZZINESS AND COUGH SYRUP FOR WET MOIST COUGH.
[2024-06-17 20:07] VITALS: BP 155/71
[2024-06-18 04:11] VITALS: BP 146/58
--- NOTE | 2024-06-18 04:52 | NUR ---
SHIFT SUMMARY 88 YR F ADMITTED ON 06/09/24. DNR. NO ACUTE CHANGES THIS SHIFT. PT IS GETTING UP TO BEDSIDE COMMODE BY HERSELF ALTHOUGH SHE IS VERY MUCH ENCOURAGED TO CALL FOR ASSISTANCE. SHE HAS SLEPT THROUGH MOST OF THE NIGHT AND HAS HAD NO C/O PAIN. BED IS IN LOW POSITION WITH BED ALARM ON AND CALL LIGHT IS IN REACH.
[2024-06-18 07:46] VITALS: BP 139/51
[2024-06-18] MEDS ORDERED: Azithromycin 500 MG in NS 250 ML IV SCH (10:49)
[2024-06-18] MEDS ORDERED: Insulin Human Lispro 100 Units/ML 3ML Syringe SC SCH (11:30)
[2024-06-18] MEDS ORDERED: MethylPREDNISolone Sod Succ 125 MG Vial IV SCH (16:00)
[2024-06-18 16:35] VITALS: BP 143/66
--- NOTE | 2024-06-18 18:41 | NUR ---
SHIFT SUMMARY PATIENT ALERT AND INTERACTIVE. PATIENT GETTING UP OOB TO USE COMMODE. CONTINUES TO HAVE EPISODES OF DIZZY SPELLS BUT NOT SEVERE YESTERDAY. FAMILY IN THE ROOM AND IN AGREEMENT FOR PATIENT TO GO TO SNF/REHAB. BRUISING CONTINUES TO IMPROVE. PATIENT TAKEN DOWN TO XRAY FOR CHEST XRAY VIA WHEELCHAIR. PATIENT ABLE TO TRANSFER TO WHEELCHAIR WITH MINIMAL ASSIST.
[2024-06-18 19:37] VITALS: BP 153/64
[2024-06-18] MEDS ORDERED: Lactobacil 2-S.Thermo-Bifido 1 1 Cap PO SCH (21:00)
--- NOTE | 2024-06-19 03:37 | NUR ---
SHIFT SUMMARY PT IS A&O X4, ABLE TO MAKE HER NEEDS KNOWN, COOPERATIVE WITH CARE. [place] DURING THE LINEWORKER D/T HIGH FALL RISK AND DX OF VERTIGO. PT DENIES PAIN AND DISCOMFORT. HS BGl 188. NEW IV ON RIGHT FOREARM. NO ACUTE EVENTS DURING THIS SHIFT. BED AT THE LOWEST POSITION, CALL LIGHT W/I REACH.
[2024-06-19 04:48] VITALS: BP 140/62
[2024-06-19 05:40] LABS: BASOPHILS ABSOLUTE AUTO 0.02 K/mm3 (0.00-0.23); BASOPHILS PERCENT AUTO 0 % (0-2); EOSINOPHILS ABSOLUTE AUTO 0.01 K/mm3 (0.00-0.68); EOSINOPHILS PERCENT AUTO 0 % (0-6); Hematocrit 32.6 % (33.0-51.0); Hemoglobin 10.3 g/dL (11.5-16.0); IMMATURE GRAN ABSOLUTE AUTO 0.04 K/mm3 (0.00-0.10); IMMATURE GRAN PERCENT AUTO 1 % (0-1); LYMPHOCYTES ABSOLUTE AUTO 0.92 K/mm3 (0.84-5.20); LYMPHOCYTES PERCENT AUTO 12 % (21-46); MONOCYTES ABSOLUTE AUTO 0.05 K/mm3 (0.16-1.47); MONOCYTES PERCENT AUTO 1 % (4-13); Mean Corpuscular HGB 29.6 pg (26.0-34.0); Mean Corpuscular HGB Conc 31.6 g/dL (31.5-36.5); Mean Corpuscular Volume 94 fL (80-100); Mean Platelet Volume 11.1 fL (9.1-12.4); NEUTROPHILS PERCENT AUTO 86 % (41-73); Platelet Count 209 K/mm3 (150-400); RDW Coefficient Variation 15.6 % (11.7-14.2); RDW Standard Deviation 53.5 fL (35.1-46.3); Red Blood Cell Count 3.48 M/mm3 (3.80-5.20); White Blood Cell Count 7.54 K/mm3 (4.00-11.30)
[2024-06-19 06:10] LABS: Albumin, Blood 2.2 g/dL (3.4-5.0); Albumin/Globulin Ratio 0.6 (0.8-1.8); Bilirubin, Total 0.3 mg/dL (0.1-1.0); Bun/Creatinine Ratio 22.7 (12.0-20.0); Calcium, Blood 8.7 mg/dL (8.5-10.1); Creatinine, Blood 1.28 mg/dL (0.40-1.00); Globulin, Blood 3.8 g/dL (2.2-4.0); Potassium, Blood 5.1 mmol/L (3.5-5.5)
[2024-06-19 07:24] VITALS: BP 144/58
[2024-06-19] MEDS ORDERED: NS 1,000 ML IV SCH (07:45)
[2024-06-19] MEDS ORDERED: Vancomycin HCL 2,000 MG in NS 500 ML IV ONE (07:55)
[2024-06-19] MEDS ORDERED: Cefepime HCl 2,000 MG in NS 100 ML IV SCH (09:00)
[2024-06-19 15:03] VITALS: BP 161/71
--- NOTE | 2024-06-19 18:37 | NUR ---
SHIFT SUMMARY: PT A&Ox4/BEDREST WITH BSC PRIVLEDGES, MAKES NEEDS KNOWN, AND PLEASANT AND COOPERATIVE WITH CARE. SHE CONTINUES TO GET IV ANTIBITOICS AND IV FLUIDS. REMOVED SUTURES FROM R ISLAM, YEAST AREAS CLEANSED, POWDERED, AND INTERDRY SHEETS APPLIED. GRANDDAUGHTER PEYTON CALLED TODAY AND GAVE HER AN UPDATE. PLAN IS FOR PATIENT TO GO TO [facility]. SHE IS IN BED, CALL LIGHT WITHIN REACH, NO SIGNS OR SYMPTOMS OF DISTRESS, PLAN OF CARE ONGOING.
[2024-06-19 19:29] VITALS: BP 141/55
[2024-06-19] MEDS ORDERED: Famotidine 20 MG Tab PO SCH (21:00)
[2024-06-20 02:30] VITALS: BP 146/48
--- NOTE | 2024-06-20 06:07 | NUR ---
Shift Summary No acute changes. Pt did not require a purewick this shift, she had continent voids in the BSC with 1 assist to and from the BSC. She did c/o some R shoulder pain, offered heating pad and medicated per EMAR. She slept well t/o most of the night. RCVD IV steriods and NS @ 50.
[2024-06-20 07:10] VITALS: BP 135/75
[2024-06-20] MEDS ORDERED: MethylPREDNISolone Sod Succ 40 MG VIAL IV SCH (09:00)
[2024-06-20 13:29] LABS: SARS-Cov-2 (COVID-19) PCR, MMC NEGATIVE (NEGATIVE)
--- NOTE | 2024-06-20 14:23 | NUR ---
RN NOTE AWAITING MEDICAL TRANSPORT TO [facility]. REPORT CALLED TO ORTIZ, RECEIVING NURSE. MS ERMA IS ORIENTATED AND APPROPRIATE, DENIES PAIN OR SOB. UP TO BSC AND CHAIR WITH 1 PERSON ASSIST TODAY. DENIES DIZZYNESS ON THESE ACTIVITIES. TELEMETRY AND PIV REMOVED AND PT DRESSED AND READY FOR TRANSPORT. BATH/SKIN CARE BY STEAM GENERATING POWERPLANT MECHANIC THIS AM. SKIN RED UNDER BREASTS AND PANNIS, REPORTEDLY IMPROVED. GOOD FRIEND AT BEDSIDE.
--- NOTE | 2024-06-20 15:14 | NUR ---
DISCHARGE NOTE W/C TRANSPORT TO [facility] AT 1508HRS. NO NEW CONCERNS VOICED PRIOR TO DISCHARGE.
== END 2024-06-20 15:10 | DRG 306 ==
LOC: ER 13:11 → MEDS 16:13
PROVIDERS: Family Medicine; Hospitalist; Internal Medicine; ADMIT Family Medicine
DX: I35.0 Nonrheumatic aortic (valve) stenosis (principal); A41.9 Sepsis, unspecified organism; J18.9 Pneumonia, unspecified organism; S06.0XAA Concussion with loss of consciousness status unknown, initial encounter; N18.4 Chronic kidney disease, stage 4 (severe); N39.0 Urinary tract infection, site not specified; E87.20 Acidosis, unspecified; Z68.42 Body mass index [BMI] 45.0-49.9, adult; I12.9 Hypertensive chronic kidney disease with stage 1 through stage 4 chronic kidney disease, or unspecified chronic kidney disease; E11.22 Type 2 diabetes mellitus with diabetic chronic kidney disease; B96.1 Klebsiella pneumoniae [K. pneumoniae] as the cause of diseases classified elsewhere; E78.5 Hyperlipidemia, unspecified; W18.30XA Fall on same level, unspecified, initial encounter; M54.50 Low back pain, unspecified; Z66 Do not resuscitate; E66.9 Obesity, unspecified; M19.90 Unspecified osteoarthritis, unspecified site; G89.29 Other chronic pain; S01.81XA Laceration without foreign body of other part of head, initial encounter; J40 Bronchitis, not specified as acute or chronic; K21.9 Gastro-esophageal reflux disease without esophagitis; E11.42 Type 2 diabetes mellitus with diabetic polyneuropathy; Z85.828 Personal history of other malignant neoplasm of skin; Z90.710 Acquired absence of both cervix and uterus; Z98.890 Other specified postprocedural states; Z88.5 Allergy status to narcotic agent; Z79.82 Long term (current) use of aspirin; Z79.899 Other long term (current) drug therapy; Z79.4 Long term (current) use of insulin; Z79.891 Long term (current) use of opiate analgesic
CPT/HCPCS: 36415; 71045; 71046; 73560-RT; 80053; 81001; 82947; 83036; 83605; 83735; 84100; 84145; 85025; 87077; 87086; 87186; 93306; 93880; 94760; 96374; 97110; 97162; 97530; 99285-25; A9270; J0456; J0692; J1644; J1815; J2405; J2919; J3370; J7030; J7040; J7050; U0002

== ENCOUNTER 2024-08-30 15:15 | Inpatient (IN) | payer MEDICARE, BC ==
[~2024-08-30] VITALS: Ht 154.9 cm; Wt 108.5 kg
[~2024-08-30 15:15] MED LIST changes: +ATOR10 PO; +CALCIUM 600-VI1 EAC3 PO; +CRANBERRY450 M1 PO; +FAMO20 PO; +FLUC200 PO; +GABA100 PO; +KLAYESTA15 GM TOP; +KLOR-CON 1010 ME1 PO; +LOSARTAN-HCTZ1 EAC6 PO; +MAGNESIUM OXID400 M1 PO; +Magnesium250 MG PO; +OSTEOBIFLEX PO; +Preservision S1 EACH PO; +SEMGLEE (Y100 UNIT/2 SC; +Vitamin B Comple1 EA PO
[2024-08-30 16:12] LABS: BASOPHILS ABSOLUTE AUTO 0.07 K/mm3 (0.00-0.23); BASOPHILS PERCENT AUTO 1 % (0-2); EOSINOPHILS PERCENT AUTO 6 % (0-6); Hematocrit 41.5 % (33.0-51.0); IMMATURE GRAN ABSOLUTE AUTO 0.03 K/mm3 (0.00-0.10); IMMATURE GRAN PERCENT AUTO 0 % (0-1); LYMPHOCYTES ABSOLUTE AUTO 2.03 K/mm3 (0.84-5.20); LYMPHOCYTES PERCENT AUTO 22 % (21-46); MONOCYTES ABSOLUTE AUTO 0.62 K/mm3 (0.16-1.47); MONOCYTES PERCENT AUTO 7 % (4-13); Mean Corpuscular HGB 29.3 pg (26.0-34.0); Mean Corpuscular HGB Conc 31.3 g/dL (31.5-36.5); Mean Corpuscular Volume 94 fL (80-100); Mean Platelet Volume 10.9 fL (9.1-12.4); NEUTROPHILS ABSOLUTE AUTO 5.89 K/mm3 (1.96-9.15); NEUTROPHILS PERCENT AUTO 64 % (41-73); Platelet Count 178 K/mm3 (150-400); RDW Coefficient Variation 15.1 % (11.7-14.2); Red Blood Cell Count 4.44 M/mm3 (3.80-5.20); White Blood Cell Count 9.14 K/mm3 (4.00-11.30)
[2024-08-30 16:22] LABS: Albumin, Blood 2.8 g/dL (3.4-5.0); Albumin/Globulin Ratio 0.8 (0.8-1.8); Bilirubin, Total 0.2 mg/dL (0.1-1.0); Calcium, Blood 8.9 mg/dL (8.5-10.1); Creatinine, Blood 1.25 mg/dL (0.40-1.00); Globulin, Blood 3.5 g/dL (2.2-4.0); Potassium, Blood 4.1 mmol/L (3.5-5.5); Total Protein, Blood 6.3 g/dL (6.4-8.2)
[2024-08-30 21:22] LABS: Influenza A, PCR NEGATIVE (NEGATIVE); Influenza B, PCR NEGATIVE (NEGATIVE); Resp Syncytial Virus, PCR NEGATIVE (NEGATIVE); SARS-Cov-2 (COVID-19) PCR, MMC NEGATIVE (NEGATIVE)
[2024-08-30] MEDS ORDERED: Labetalol HCL 5 MG/ML 4ML Injection (Single Dose) IV ONE (21:25)
[2024-08-30] MEDS ORDERED: Furosemide 10 MG/ML 4ML Vial IV ONE (22:30)
[2024-08-30] MEDS ORDERED: HydrALAZINE HCl 20 MG / ML 1ML Vial IV PRN (22:55)
[2024-08-30] MEDS ORDERED: Ondansetron HCl 2 MG / ML 2ML Vial IV PRN (22:55)
[2024-08-30] MEDS ORDERED: Enoxaparin 40 MG/0.4 ML SYR SC SCH (23:00)
[2024-08-30] MEDS ORDERED: FLU VACC TS2024-25(6MOS UP)/PF 45 MCG/0.5 ML SYRINGE IM ONE (23:00)
[2024-08-31 04:31] LABS: BASOPHILS ABSOLUTE AUTO 0.04 K/mm3 (0.00-0.23); BASOPHILS PERCENT AUTO 1 % (0-2); EOSINOPHILS ABSOLUTE AUTO 0.43 K/mm3 (0.00-0.68); EOSINOPHILS PERCENT AUTO 5 % (0-6); IMMATURE GRAN ABSOLUTE AUTO 0.02 K/mm3 (0.00-0.10); IMMATURE GRAN PERCENT AUTO 0 % (0-1); LYMPHOCYTES ABSOLUTE AUTO 1.98 K/mm3 (0.84-5.20); LYMPHOCYTES PERCENT AUTO 23 % (21-46); MONOCYTES ABSOLUTE AUTO 0.71 K/mm3 (0.16-1.47); MONOCYTES PERCENT AUTO 8 % (4-13); Mean Corpuscular HGB 29.2 pg (26.0-34.0); Mean Corpuscular HGB Conc 31.6 g/dL (31.5-36.5); Mean Corpuscular Volume 93 fL (80-100); Mean Platelet Volume 11.3 fL (9.1-12.4); NEUTROPHILS ABSOLUTE AUTO 5.43 K/mm3 (1.96-9.15); NEUTROPHILS PERCENT AUTO 63 % (41-73); Platelet Count 171 K/mm3 (150-400); RDW Coefficient Variation 15.2 % (11.7-14.2); Red Blood Cell Count 4.11 M/mm3 (3.80-5.20); White Blood Cell Count 8.61 K/mm3 (4.00-11.30)
[2024-08-31 07:18] LABS: Albumin, Blood 2.9 g/dL (3.4-5.0); Albumin/Globulin Ratio 0.9 (0.8-1.8); Bilirubin, Total 0.5 mg/dL (0.1-1.0); Bun/Creatinine Ratio 15.4 (12.0-20.0); Calcium, Blood 8.8 mg/dL (8.5-10.1); Creatinine, Blood 1.23 mg/dL (0.40-1.00); Globulin, Blood 3.3 g/dL (2.2-4.0); Potassium, Blood 3.9 mmol/L (3.5-5.5); Total Protein, Blood 6.2 g/dL (6.4-8.2)
[2024-08-31] MEDS ORDERED: Insulin Human Lispro 100 Units/ML 3ML Syringe SC SCH (07:30)
[2024-08-31] MEDS ORDERED: Furosemide 10 MG/ML 4ML Vial IV SCH (09:00)
[2024-08-31] MEDS ORDERED: ELIQUIS5 M3 PO (12:35)
[2024-08-31 13:59] VITALS: BP 197/75
[2024-08-31] MEDS ORDERED: Famotidine 20 MG Tab PO PRN (14:30)
[2024-08-31] MEDS ORDERED: MAGNESIUM OXID500 MG PO (15:33)
[2024-08-31] MEDS ORDERED: ONDA4ODT MM (15:36)
[2024-08-31 15:54] VITALS: BP 151/54
[2024-08-31] MEDS ORDERED: Insulin Glargine-Yfgn 100 Unit/mL 3 ML SYR SC SCH (18:00)
--- NOTE | 2024-08-31 19:18 | NUR ---
ADMISSION NOTE/SHIFT SUMMARY PATIENT A/OX4, ABLE TO MAKE NEEDS KNOWN. ADMITTED FROM ED THIS EVENING FOR SOB AND CHF. PUREWICK IN PLACE UPON ARRIVAL, REMOVED AND PATIENT ABLE TO USE COMMODE 1 PERSON ASSIST. TELEMETRY IN PLACE, NORMAL SINUS RHYTHYM 77 BPM. ADMISSION DOCUMENTATION COMPLETED, MED REC COMPLETED. BRUISES NOTED TO LEFT BUTTOCK R/T FALL AT HOME. BRUISE TO LEFT HAND/FOREARM R/T BLOOD DRAW. PATIENT WITH DYSPNEA WITH EXERTION. VSS. CAREGIVER/ROOMMATE, JOHN DAILY, STATES THAT PATOENT WITH FAMILY WHO HAS "NEGLECTED AND STOLEN" FROM THE PATIENT'S HOME WHO WERE AT THE TIME SUPPOSED TO BE CAREGIVER'S OF THE PATIENT. CAREGIVER STATES THEY ARE TO HAVE A NO CONTACT ORDER WITH GRANDSON, NINO CLAIRE AND HIS AQUILES. CHARGE NURSE NOTIFIED. NO OTHER CONCERNS AT THIS TIME. REPORT GIVEN TO [facility] SHIFT NURSE.
[2024-08-31 19:37] VITALS: BP 147/56
[2024-08-31] MEDS ORDERED: Gabapentin 100 MG Cap PO SCH (21:00)
[2024-08-31] MEDS ORDERED: Miconazole Nitrate 2% 85 GM PWD TOP SCH (21:00)
[2024-08-31] MEDS ORDERED: Metoprolol Succinate 50 MG TABCR PO SCH (21:00)
[2024-08-31] MEDS ORDERED: Apixaban 5 MG Tab PO SCH (21:00)
[2024-09-01 02:23] VITALS: BP 144/59
[2024-09-01 04:53] LABS: BASOPHILS ABSOLUTE AUTO 0.04 K/mm3 (0.00-0.23); BASOPHILS PERCENT AUTO 1 % (0-2); EOSINOPHILS ABSOLUTE AUTO 0.42 K/mm3 (0.00-0.68); EOSINOPHILS PERCENT AUTO 6 % (0-6); Hemoglobin 11.2 g/dL (11.5-16.0); IMMATURE GRAN ABSOLUTE AUTO 0.02 K/mm3 (0.00-0.10); IMMATURE GRAN PERCENT AUTO 0 % (0-1); LYMPHOCYTES PERCENT AUTO 21 % (21-46); MONOCYTES ABSOLUTE AUTO 0.78 K/mm3 (0.16-1.47); MONOCYTES PERCENT AUTO 10 % (4-13); Mean Corpuscular HGB 29.2 pg (26.0-34.0); Mean Corpuscular Volume 91 fL (80-100); Mean Platelet Volume 10.6 fL (9.1-12.4); NEUTROPHILS ABSOLUTE AUTO 4.62 K/mm3 (1.96-9.15); NEUTROPHILS PERCENT AUTO 62 % (41-73); Platelet Count 177 K/mm3 (150-400); RDW Coefficient Variation 15.4 % (11.7-14.2); RDW Standard Deviation 50.9 fL (35.1-46.3); Red Blood Cell Count 3.84 M/mm3 (3.80-5.20); White Blood Cell Count 7.48 K/mm3 (4.00-11.30)
[2024-09-01 05:29] LABS: Calcium, Blood 8.5 mg/dL (8.5-10.1); Creatinine, Blood 1.19 mg/dL (0.40-1.00); Magnesium, Blood 2.1 mg/dL (1.6-2.4); Potassium, Blood 3.4 mmol/L (3.5-5.5)
--- NOTE | 2024-09-01 06:21 | NUR ---
SHIFT SUMMARY PT ALERT AND ORIENTED TIMES 4. PT WAS RECEPTIVE TO CARE, TOOK HS MEDICATION. PT APPROPRIATE WITH CALL LIGHT AND ABLE TO MAKE NEEDS KNOWN. PT ABLE TO AMBULATE TO AND FROM BEDSIDE COMMODE WITH STAFF ASSIST. ASSISTED PT WITH ORDERING FROM THE BREAKFAST MENU. PT APPEARED TO SLEEP THROUGH THE NIGHT WITHOUT ISSUE. BED IN LOW POSITION, CALL LIGHT WITHIN REACH, RAILS TIMES 2.
[2024-09-01 07:12] VITALS: BP 159/54
[2024-09-01] MEDS ORDERED: Losartan Potassium 50 MG Tab PO SCH (09:00)
[2024-09-01] MEDS ORDERED: HydroCHLOROthiazide 25 mg Tab PO SCH (09:00)
[2024-09-01] MEDS ORDERED: Insulin Glargine-Yfgn 100 Unit/mL 3 ML SYR SC SCH (09:00)
[2024-09-01] MEDS ORDERED: Magnesium Oxide 400 MG Tab PO SCH (09:00)
--- NOTE | 2024-09-01 09:44 | NUR ---
pt laying in bed awake a/ox4, pleasant and cooperative with care, follows commands well, denies pain at this time, lungs are clear in upper taylor, fine crackles in bases, resp even and unlabored at rest, on r/a, no cough noted, hrr, tele in place running sr in 70's, trace edema noted to b/l ankles, piv to rac, site is clear and patent, btx4, abd flat soft nontender, voids via bsc without diff, skin c/w/d, maew, able to stand and tx to bsc with sba, kimberlyn, able to make needs known, call light in reach.
[2024-09-01] MEDS ORDERED: Potassium Chloride 20 MEQ/15 ML UDC PO ONE (13:30)
[2024-09-01 15:43] VITALS: BP 144/57
--- NOTE | 2024-09-01 18:07 | NUR ---
has been up to the bsc throughout the day, no acute changes this shift. call light in reach.
[2024-09-01 19:23] VITALS: BP 165/52
[2024-09-01 22:13] VITALS: BP 171/54
[2024-09-01 23:13] VITALS: BP 153/52
--- NOTE | 2024-09-02 00:21 | NUR ---
NEW T-ORDER FROM ON-CALL HOSPITALIST : TYLENOL PO PRN Q6HRS NEEDED FOR MILD PAIN. ENTERED TO [employer], SEE EMAR.
[2024-09-02] MEDS ORDERED: Acetaminophen 325 MG TABLET PO PRN (00:25)
--- NOTE | 2024-09-02 03:55 | NUR ---
SHIFT SUMMARY PT IS A/O X4, 1-PERSON ASSIST TO BEDSIDE COMMODE, COOPERATIVE WITH CARE. ORDER IS STRICT I&O'S. MEDICATED WITH TYLENOL FOR GENERALIZED BODY ACHES 6/10 PER PT REPORT. PT IS ON RA, SAT'S>93%. LUNG SOUNDS FINE CRACKLES ON BASES PER AUSCULTATION. NO COUGH NOTED. LE EDEMA +1 BILATERALLY. TELE: SR @84. PT DENIES PRESSURE/TIGHTNESS, DENIES SOB. HS B. NO ACUTE EVENTS DURING THIS SHIFT. BED AT THE LOWEST POSITION, CALL LIGHT W/I REACH. PT IS ABLE TO MAKE HER NEEDS KNOWN. PT REPORTS HAS A SCHEDULED SURGERY @[facility] ON September. PT REPORTS SHE WAS HOSPITALIZED AT [facility] ON MAY 2024 D/T BLOOD CLOTS IN HER LUNGS, AND COMPLETED PT @[facility] FOR TWO WEEKS THERE AFTER.
[2024-09-02 04:11] VITALS: BP 142/47
[2024-09-02 05:10] LABS: BASOPHILS ABSOLUTE AUTO 0.05 K/mm3 (0.00-0.23); BASOPHILS PERCENT AUTO 1 % (0-2); EOSINOPHILS ABSOLUTE AUTO 0.57 K/mm3 (0.00-0.68); EOSINOPHILS PERCENT AUTO 8 % (0-6); Hematocrit 36.1 % (33.0-51.0); Hemoglobin 11.3 g/dL (11.5-16.0); IMMATURE GRAN ABSOLUTE AUTO 0.02 K/mm3 (0.00-0.10); IMMATURE GRAN PERCENT AUTO 0 % (0-1); LYMPHOCYTES ABSOLUTE AUTO 2.15 K/mm3 (0.84-5.20); LYMPHOCYTES PERCENT AUTO 29 % (21-46); MONOCYTES ABSOLUTE AUTO 0.85 K/mm3 (0.16-1.47); MONOCYTES PERCENT AUTO 12 % (4-13); Mean Corpuscular HGB 28.8 pg (26.0-34.0); Mean Corpuscular HGB Conc 31.3 g/dL (31.5-36.5); Mean Corpuscular Volume 92 fL (80-100); NEUTROPHILS ABSOLUTE AUTO 3.75 K/mm3 (1.96-9.15); NEUTROPHILS PERCENT AUTO 51 % (41-73); Platelet Count 178 K/mm3 (150-400); RDW Coefficient Variation 15.6 % (11.7-14.2); RDW Standard Deviation 52.8 fL (35.1-46.3); Red Blood Cell Count 3.92 M/mm3 (3.80-5.20); White Blood Cell Count 7.39 K/mm3 (4.00-11.30)
[2024-09-02 06:07] LABS: Bun/Creatinine Ratio 14.9 (12.0-20.0); Calcium, Blood 9.1 mg/dL (8.5-10.1); Creatinine, Blood 1.41 mg/dL (0.40-1.00); Potassium, Blood 3.3 mmol/L (3.5-5.5)
[2024-09-02 07:18] VITALS: BP 161/54
--- NOTE | 2024-09-02 09:00 | NUR ---
pt laying in bed awake a/ox4, pleasant and cooperative with care, follows commands well, denies pain at this time, lungs are clear in upper taylor, dim in bases, resp even and unlabored, on r/a, no cough noted, hrr, murmur noted, very trace edema noted to b/l le, pp+1, cap refill <3 sec, vs stable, afebrile, piv to rac site is clear and patent, btx4, abd flat soft nontender, voids via bsc, sba to chair, maew, weak, kimberlyn, call light in reach.
[2024-09-02 14:45] LABS: Albumin, Blood 2.8 g/dL (3.4-5.0); Anion Gap 11 mmol/L (3-11); Blood Urea Nitrogen 22 mg/dL (8-24); Bun/Creatinine Ratio 14.4 (12.0-20.0); CO2, Blood 30 mmol/L (21-32); Calcium, Blood 8.9 mg/dL (8.5-10.1); Chloride, Blood 103 mmol/L (98-108); Creatinine, Blood 1.53 mg/dL (0.40-1.00); Glomerular Filtration Rate 33 (60-); Glucose, Blood 213 mg/dL (70-99); Phosphorus, Blood 4.2 mg/dL (2.5-4.9); Potassium, Blood 3.5 mmol/L (3.5-5.5); Sodium, Blood 140 mmol/L (136-145)
[2024-09-02 15:27] VITALS: BP 173/70
[2024-09-02 17:36] VITALS: BP 148/53
--- NOTE | 2024-09-02 18:29 | NUR ---
PT PLEASANT SINCE ASSUMING CARE 1300. HTN NOTED AND DISCUSSED WITH DR CÁRDENAS. WHEN RETOOK BP FOR ADMIN OF HYDRALAZINE, BP 148/53. HELD. PT STAYING OVERNIGHT PER DR CÁRDENAS. HOPEFUL FOR D/C TOMORROW. NO FURTHER CONCERNS NOTED. BED IN LOW POSITION, CALL LITE IN REACH, CALLS APPROP
[2024-09-02 19:51] VITALS: BP 150/62
[2024-09-03 02:19] VITALS: BP 95/70
[2024-09-03 02:49] VITALS: BP 143/58
--- NOTE | 2024-09-03 03:07 | NUR ---
SHIFT SUMMARY NO ACUTE DISTRESS/EVENTS DURING THIS SHIFT. O2 CONTINUOUS MONITORING, SAT'S>93%. PT REPORTS SOME SOB WHEN GETTING UP FROM BED TO USE COMMODE, 1-PERSON ASSIST. PT DENIES PAIN AND DISCOMFORT. BED AT THE LOWEST POSITION, CALL LIGHT WITHIN REACH. PT IS ABLE TO MAKE HER NEEDS KNOWN.
[2024-09-03 05:16] LABS: BASOPHILS ABSOLUTE AUTO 0.04 K/mm3 (0.00-0.23); BASOPHILS PERCENT AUTO 1 % (0-2); EOSINOPHILS ABSOLUTE AUTO 0.56 K/mm3 (0.00-0.68); EOSINOPHILS PERCENT AUTO 6 % (0-6); Hematocrit 36.1 % (33.0-51.0); Hemoglobin 11.4 g/dL (11.5-16.0); IMMATURE GRAN ABSOLUTE AUTO 0.03 K/mm3 (0.00-0.10); IMMATURE GRAN PERCENT AUTO 0 % (0-1); LYMPHOCYTES ABSOLUTE AUTO 2.26 K/mm3 (0.84-5.20); LYMPHOCYTES PERCENT AUTO 26 % (21-46); MONOCYTES ABSOLUTE AUTO 0.97 K/mm3 (0.16-1.47); MONOCYTES PERCENT AUTO 11 % (4-13); Mean Corpuscular HGB 28.9 pg (26.0-34.0); Mean Corpuscular HGB Conc 31.6 g/dL (31.5-36.5); Mean Corpuscular Volume 92 fL (80-100); Mean Platelet Volume 10.8 fL (9.1-12.4); NEUTROPHILS ABSOLUTE AUTO 5.01 K/mm3 (1.96-9.15); NEUTROPHILS PERCENT AUTO 57 % (41-73); Platelet Count 171 K/mm3 (150-400); RDW Coefficient Variation 15.2 % (11.7-14.2); RDW Standard Deviation 51.5 fL (35.1-46.3); Red Blood Cell Count 3.94 M/mm3 (3.80-5.20); White Blood Cell Count 8.87 K/mm3 (4.00-11.30)
[2024-09-03 05:52] LABS: Bun/Creatinine Ratio 14.6 (12.0-20.0); Calcium, Blood 8.8 mg/dL (8.5-10.1); Creatinine, Blood 1.44 mg/dL (0.40-1.00); Potassium, Blood 3.3 mmol/L (3.5-5.5)
[2024-09-03 07:54] VITALS: BP 143/52
[2024-09-03] MEDS ORDERED: Potassium Chloride 20 MEQ TabCR PO ONE (10:15)
[2024-09-03] MEDS ORDERED: Furosemide 40 MG Tab PO ONE (11:20)
[2024-09-03] MEDS ORDERED: LOSA50 PO (13:36)
[2024-09-03] MEDS ORDERED: POTA10T PO (13:37)
--- NOTE | 2024-09-03 14:00 | NUR ---
MET WITH PATIENT, AND CAREGIVER OTTO. DISCUSSED POLST ON FILE. THEY REPORTED THAT THEY HAVE FILLED OUT A POLST MORE RECENTLY THAN THE ONE ON FILE 06/09/24. THEY RELAYED THAT TANVIR IS STILL DNR, BUT HAVE CHANGED MEDICALINTERVENTIONS FROM COMFORT MEASURES TO LIMITED TREATMENT. CALLED [facility] AND REQUESTED UPDATED COPY. NOTIFIED ATTENDING PHYSICIAN.
--- NOTE | 2024-09-03 15:40 | NUR ---
SHIFT SUMMARY AND DISCHARGE PATIENT ALERT AND INTERACTIVE. NEEDING MEAL SET UP BECAUSE OF VISUAL ISSUES. PATIENT ABLE TO AMBULATE WITH STAND BY ASSIST. PATINET DISCHARGING HOME. DISCHARGE INSTRUCTIONS REVIEWED WITH PATIENT AND CAREGIVER. IV DC'D, TELE REMOVED. PATIENT SHOWERED AND DRESSED PRIOR TO DISCHARGE. PATIENT AMBULATED WITH RT FOR HOME O2 EVAL OUT IN THE PRECIADO. NO O2 NEEDED. BELONGINGS RETURNED TO PATIENT AND ROOM CHECK DONE BEFORE DEPARTURE. PATIENT TAKEN OUT VIA WHEELCHAIR BY NURSE.
== END 2024-09-03 15:48 | disposition home or self-care (01) | DRG 291 ==
LOC: ER 15:15 → ERHOLD 15:16 → MEDS 15:16 → ERHOLD 15:16 → MEDS 08-31 13:45
PROVIDERS: Student in an Organized Health Care Education/Training Program; ADMIT Internal Medicine
DX: I13.0 Hypertensive heart and chronic kidney disease with heart failure and stage 1 through stage 4 chronic kidney disease, or unspecified chronic kidney disease (principal); I50.33 Acute on chronic diastolic (congestive) heart failure; B37.89 Other sites of candidiasis; N18.4 Chronic kidney disease, stage 4 (severe); I35.0 Nonrheumatic aortic (valve) stenosis; E11.22 Type 2 diabetes mellitus with diabetic chronic kidney disease; K21.9 Gastro-esophageal reflux disease without esophagitis; I16.0 Hypertensive urgency; E87.6 Hypokalemia; R05.1 Acute cough; D63.1 Anemia in chronic kidney disease; Z66 Do not resuscitate; Z86.711 Personal history of pulmonary embolism; Z79.01 Long term (current) use of anticoagulants; Z86.718 Personal history of other venous thrombosis and embolism; E78.5 Hyperlipidemia, unspecified; M19.90 Unspecified osteoarthritis, unspecified site; G89.29 Other chronic pain; Z79.82 Long term (current) use of aspirin; Z79.899 Other long term (current) drug therapy; Z88.5 Allergy status to narcotic agent; Z90.710 Acquired absence of both cervix and uterus
CPT/HCPCS: 0241U; 36415; 71046; 71260; 80048; 80053; 80069; 82947; 83735; 83880; 84484; 85025; 85379; 93005; 93010; 94761; 94762; 96372-59; 96374-59; 96375; 96375-59; 96376; 99285-25; A9270; G0378; J0360; J1650; J1815; J1940; Q9967

== ENCOUNTER 2024-10-20 18:43 | Inpatient (IN) | payer MEDICARE, BC ==
[~2024-10-20] VITALS: Ht 154.9 cm; Wt 104.9 kg
[~2024-10-20 18:43] MED LIST changes: +ELIQUIS5 M3 PO; +Furosemide 10 MG/ML 4ML Vial IV SCH; +LOSA50 PO; +MAGNESIUM OXID500 MG PO; +Metoprolol Succinate 50 MG TABCR PO SCH; +ONDA4ODT MM; +POTA10T PO
[2024-10-20 19:22] LABS: BASOPHILS ABSOLUTE AUTO 0.06 K/mm3 (0.00-0.23); BASOPHILS PERCENT AUTO 1 % (0-2); EOSINOPHILS ABSOLUTE AUTO 0.44 K/mm3 (0.00-0.68); EOSINOPHILS PERCENT AUTO 4 % (0-6); Hematocrit 39.8 % (33.0-51.0); Hemoglobin 12.3 g/dL (11.5-16.0); IMMATURE GRAN ABSOLUTE AUTO 0.05 K/mm3 (0.00-0.10); IMMATURE GRAN PERCENT AUTO 0 % (0-1); LYMPHOCYTES PERCENT AUTO 19 % (21-46); MONOCYTES PERCENT AUTO 7 % (4-13); Mean Corpuscular HGB 28.5 pg (26.0-34.0); Mean Corpuscular HGB Conc 30.9 g/dL (31.5-36.5); Mean Corpuscular Volume 92 fL (80-100); Mean Platelet Volume 11.2 fL (9.1-12.4); NEUTROPHILS PERCENT AUTO 69 % (41-73); Platelet Count 246 K/mm3 (150-400); RDW Coefficient Variation 15.8 % (11.7-14.2); RDW Standard Deviation 54.4 fL (35.1-46.3); Red Blood Cell Count 4.31 M/mm3 (3.80-5.20); White Blood Cell Count 11.35 K/mm3 (4.00-11.30)
[2024-10-20] MEDS ORDERED: Acetaminophen325 M1 PO (19:27)
[2024-10-20] MEDS ORDERED: INSULANI (19:28)
[2024-10-20] MEDS ORDERED: B-COMPLEX WITH1 EAC2 PO (19:28)
[2024-10-20 19:49] LABS: Albumin, Blood 3.1 g/dL (3.4-5.0); Albumin/Globulin Ratio 0.8 (0.8-1.8); Bilirubin, Total 0.5 mg/dL (0.1-1.0); Calcium, Blood 9.4 mg/dL (8.5-10.1); Creatinine, Blood 1.31 mg/dL (0.40-1.00); Globulin, Blood 3.7 g/dL (2.2-4.0); Total Protein, Blood 6.8 g/dL (6.4-8.2)
[2024-10-20 20:26] LABS: Influenza A, PCR NEGATIVE (NEGATIVE); Influenza B, PCR NEGATIVE (NEGATIVE); Resp Syncytial Virus, PCR NEGATIVE (NEGATIVE); SARS-Cov-2 (COVID-19) PCR, MMC NEGATIVE (NEGATIVE)
[2024-10-20] MEDS ORDERED: Azithromycin 500 MG in NS 250 ML IV ONE (22:30)
[2024-10-20] MEDS ORDERED: CefTRIAXone Sodium 1,000 MG in NS 100 ML IV ONE (22:30)
[2024-10-20] MEDS ORDERED: Labetalol HCL 5 MG/ML 4ML Injection (Single Dose) IV ONE (22:35)
[2024-10-20 22:38] LABS: International Normalized Ratio 1.06; Prothrombin Time Results 11.3 Sec (9.7-11.5)
[2024-10-20] MEDS ORDERED: FLU VACC TS2024-25(6MOS UP)/PF 45 MCG/0.5 ML SYRINGE IM ONE (23:25)
[2024-10-20] MEDS ORDERED: Acetaminophen 325 MG TABLET PO PRN (23:25)
[2024-10-20] MEDS ORDERED: Famotidine 20 MG Tab PO PRN (23:35)
[2024-10-21] VITALS (7 sets, daily range): BP systolic 157–179; BP diastolic 53–84
[2024-10-21] MEDS ORDERED: Heparin Sodium,Porcine/0.5 NS 500 ML IV SCH (00:55)
[2024-10-21 05:03] LABS: BASOPHILS ABSOLUTE AUTO 0.06 K/mm3 (0.00-0.23); BASOPHILS PERCENT AUTO 1 % (0-2); EOSINOPHILS ABSOLUTE AUTO 0.34 K/mm3 (0.00-0.68); EOSINOPHILS PERCENT AUTO 3 % (0-6); Hematocrit 34.1 % (33.0-51.0); Hemoglobin 10.7 g/dL (11.5-16.0); IMMATURE GRAN ABSOLUTE AUTO 0.03 K/mm3 (0.00-0.10); IMMATURE GRAN PERCENT AUTO 0 % (0-1); LYMPHOCYTES ABSOLUTE AUTO 1.88 K/mm3 (0.84-5.20); LYMPHOCYTES PERCENT AUTO 19 % (21-46); MONOCYTES ABSOLUTE AUTO 0.79 K/mm3 (0.16-1.47); MONOCYTES PERCENT AUTO 8 % (4-13); Mean Corpuscular HGB 28.8 pg (26.0-34.0); Mean Corpuscular HGB Conc 31.4 g/dL (31.5-36.5); Mean Corpuscular Volume 92 fL (80-100); Mean Platelet Volume 11.2 fL (9.1-12.4); NEUTROPHILS ABSOLUTE AUTO 6.94 K/mm3 (1.96-9.15); NEUTROPHILS PERCENT AUTO 69 % (41-73); Platelet Count 234 K/mm3 (150-400); RDW Coefficient Variation 15.9 % (11.7-14.2); RDW Standard Deviation 53.1 fL (35.1-46.3); Red Blood Cell Count 3.72 M/mm3 (3.80-5.20); White Blood Cell Count 10.04 K/mm3 (4.00-11.30)
[2024-10-21 05:17] LABS: Albumin, Blood 2.7 g/dL (3.4-5.0); Albumin/Globulin Ratio 0.8 (0.8-1.8); Bilirubin, Total 0.6 mg/dL (0.1-1.0); Bun/Creatinine Ratio 15.4 (12.0-20.0); Calcium, Blood 8.8 mg/dL (8.5-10.1); Creatinine, Blood 1.36 mg/dL (0.40-1.00); Globulin, Blood 3.3 g/dL (2.2-4.0); Magnesium, Blood 2.3 mg/dL (1.6-2.4); Potassium, Blood 3.7 mmol/L (3.5-5.5)
--- NOTE | 2024-10-21 07:31 | NUR ---
SHIFT SUMMARY PATIENT ARRIVED TO PCU 09 VIA STRETCHER AT 0400. SLIDE TRANSFER COMPLETED DUE TO WEAKNESS AND WORK OF BREATHING. SHORTNESS OF BREATH INCREASES WITH EXERTION, TALKING, AND LYING FLAT. CURRENTLY ON 2 LITERS O2 VIA NC, LUNG SOUNDS DIMINISHED THROUGHOUT. VITAL SIGNS STABLE. PATIENT IS ALERT AND ORIENTED X4. DENIES ANY CHEST PAIN/PRESSURE. WILL CONTINUE TO MONITOR. CALL LIGHT WITHIN REACH.
[2024-10-21] MEDS ORDERED: Cranberry Extract 250MG W/30 MG Vitamin C Tab PO SCH (09:00)
[2024-10-21] MEDS ORDERED: Vitamin B Complex 1 EA Softgel PO SCH (09:00)
[2024-10-21] MEDS ORDERED: Magnesium Oxide 400 MG Tab PO SCH (09:00)
[2024-10-21] MEDS ORDERED: Losartan Potassium 25 MG Tab PO SCH (09:00)
[2024-10-21] MEDS ORDERED: Miconazole Nitrate 2% 85 GM PWD TOP SCH (09:00)
[2024-10-21] MEDS ORDERED: Multivitamins 1 Tab PO SCH (09:00)
[2024-10-21] MEDS ORDERED: Dose Adjust by Pharmacy XX STA ×3 (09:03→23:47)
--- NOTE | 2024-10-21 10:08 | NUR ---
IMAGING CALLED THIS MORNING D/T PATIENT HAVING TAKEN HOME ELIQUIS ON 10/20 THORA WILL BE SCHEDULED FOR 10/22. IMAGING TO CONTACT DAYSHIFT NURSE ON 10/22 WHEN THE THORA WILL TAKE PLACE IN ORDER TO STOP HEPARIN DRIP 4HOURS PRIOR TO THROA.
[2024-10-21] MEDS ORDERED: Losartan Potassium 25 MG Tab PO ONE (13:00)
[2024-10-21] MEDS ORDERED: HUMALOG KW100 UNIT/1 SC (14:59)
[2024-10-21] MEDS ORDERED: INSULANI SC ×2 (15:00→15:01)
[2024-10-21] MEDS ORDERED: GuaiFENesin 100 MG/5 ML 5ML UDC PO PRN (15:05)
[2024-10-21] MEDS ORDERED: POTA10T PO (15:10)
[2024-10-21] MEDS ORDERED: BISA10S PR (15:11)
[2024-10-21] MEDS ORDERED: Preservision S1 EACH PO (15:11)
[2024-10-21] MEDS ORDERED: ONDA4 PO (15:12)
[2024-10-21] MEDS ORDERED: Insulin Human Lispro 100 Units/ML 3ML Syringe SC SCH (16:30)
--- NOTE | 2024-10-21 17:20 | NUR ---
SHIFT SUMMARY: PT ALERT AND ORIENTED X3 ABLE TO FOLLOW COMMANDS AND MAKE NEEDS KNOWN, FORGETFUL AT TIMES. BP AND HR STABLE. AFEBRILE. SPO2 >92% ON 4L NC. LUNG SOUNDS DIM. PLAN FOR THORACENTESIS IN AM, HEPARIN TO REMAIN ON. PULSES STRONG AND EQUAL THROUGHOUT. ABD SOFT, NON TENDER, BOWEL SOUNDS +. PUREWICK IN PLACE, CONNECTED TO LCS. NO BM. CAREGIVER AT BEDSIDE THIS AFTERNOON, UPDATED ON PT PLAN OF CARE. BED IN LOW, CALL LIGHT IN REACH, WILL REPORT TO ONCOMING RN.
[2024-10-21] MEDS ORDERED: Potassium Chloride 20 MEQ TabCR PO ONE (18:00)
[2024-10-21] MEDS ORDERED: Losartan Potassium 50 MG Tab PO SCH (18:00)
[2024-10-21] MEDS ORDERED: Furosemide 10 MG/ML 4ML Vial IV ONE (18:00)
[2024-10-21] MEDS ORDERED: Insulin Glargine-Yfgn 100 Unit/mL 3 ML SYR SC SCH (21:00)
[2024-10-21] MEDS ORDERED: Gabapentin 100 MG Cap PO SCH (21:00)
--- NOTE | 2024-10-21 22:20 | NUR ---
REPORT GIVEN TO RENUKA BUCHANAN FOR ASSUMPTION OF CARE. PATIENT TRANSFERRED TO PCU 13.
[2024-10-22 04:06] VITALS: BP 139/58
[2024-10-22 04:06] LABS: BASOPHILS ABSOLUTE AUTO 0.05 K/mm3 (0.00-0.23); BASOPHILS PERCENT AUTO 0 % (0-2); EOSINOPHILS ABSOLUTE AUTO 0.59 K/mm3 (0.00-0.68); EOSINOPHILS PERCENT AUTO 5 % (0-6); Hematocrit 33.9 % (33.0-51.0); Hemoglobin 10.7 g/dL (11.5-16.0); IMMATURE GRAN ABSOLUTE AUTO 0.04 K/mm3 (0.00-0.10); IMMATURE GRAN PERCENT AUTO 0 % (0-1); LYMPHOCYTES ABSOLUTE AUTO 1.94 K/mm3 (0.84-5.20); LYMPHOCYTES PERCENT AUTO 17 % (21-46); MONOCYTES ABSOLUTE AUTO 0.92 K/mm3 (0.16-1.47); MONOCYTES PERCENT AUTO 8 % (4-13); Mean Corpuscular HGB 28.5 pg (26.0-34.0); Mean Corpuscular HGB Conc 31.6 g/dL (31.5-36.5); Mean Corpuscular Volume 90 fL (80-100); Mean Platelet Volume 10.7 fL (9.1-12.4); NEUTROPHILS ABSOLUTE AUTO 8.05 K/mm3 (1.96-9.15); NEUTROPHILS PERCENT AUTO 70 % (41-73); Platelet Count 225 K/mm3 (150-400); RDW Coefficient Variation 15.9 % (11.7-14.2); RDW Standard Deviation 52.5 fL (35.1-46.3); Red Blood Cell Count 3.75 M/mm3 (3.80-5.20); White Blood Cell Count 11.59 K/mm3 (4.00-11.30)
[2024-10-22 04:30] LABS: Albumin, Blood 2.7 g/dL (3.4-5.0); Albumin/Globulin Ratio 0.8 (0.8-1.8); Bilirubin, Total 0.6 mg/dL (0.1-1.0); Bun/Creatinine Ratio 14.7 (12.0-20.0); Calcium, Blood 8.1 mg/dL (8.5-10.1); Creatinine, Blood 1.36 mg/dL (0.40-1.00); Globulin, Blood 3.2 g/dL (2.2-4.0); Potassium, Blood 3.3 mmol/L (3.5-5.5); Total Protein, Blood 5.9 g/dL (6.4-8.2)
--- NOTE | 2024-10-22 04:59 | NUR ---
Shift Note: Patient was transfered from room PCU 9 to room PCU 13 tonight. A&Ox4. On 3 Liters of O2 via NC. Patient is scheduled for Thoracentesis today. Heparin drip to be turned off 4 hours prior to procedure. Up to BSC, wick in place along with brief. Patient is aware of plan of care.
[2024-10-22] MEDS ORDERED: Dose Adjust by Pharmacy XX STA ×2 (05:13→21:26)
[2024-10-22 08:20] VITALS: BP 150/70
[2024-10-22] MEDS ORDERED: Potassium Chloride 20 MEQ TabCR PO SCH (09:00)
[2024-10-22] MEDS ORDERED: Insulin Glargine-Yfgn 100 Unit/mL 3 ML SYR SC SCH (09:00)
[2024-10-22 11:29] VITALS: BP 176/67
[2024-10-22 15:00] VITALS: BP 147/60
[2024-10-22 15:54] LABS: Automated BF WBC Count 0.419 K/mm3 (0-999)
[2024-10-22 16:04] LABS: Albumin, Body Fluid 1.2 g/dL; Glucose, Body Fluid 134 mg/dL; Lactate Dehydrogenase, Body Fl 105 U/L; Protein, Body Fluid 1.8 g/dL
[2024-10-22 16:12] LABS: Body Fluid WBC Count 419 /mm3 (0-999)
[2024-10-22 16:21] LABS: Appearance, Body Fluid Clear (Clear); Color, Body Fluid Yellow (None-Yellow); RBC Count, Body Fluid 828 /mm3 (0-0)
[2024-10-22 16:28] LABS: pH, Body Fluid 8.2
[2024-10-22 16:54] LABS: Total Cell Count, Body Fluid 100
--- NOTE | 2024-10-22 19:23 | NUR ---
SHIFT SUMMARY PATIENT AOX4 ABLE TO MAKE NEEDS KNOWN. SHE DENIES CP AND SOB. SHE WAS ON HEPARIN GTT PRIOR TO GOING TO THORACENTESIS AND RESUMED TO HEPARIN GTT AFTER COMPLETING IT. DRESSING FROM THORA ON LEFT REAR CHEST CDI. SHE IS VOIDING WITH THE PUREWICK AND HAD A BM TODAY.
[2024-10-22 19:48] VITALS: BP 158/68
[2024-10-22] MEDS ORDERED: Heparin Sodium 5000 Units/ML 1ML MDV IV ONE (21:30)
[2024-10-22 23:13] VITALS: BP 123/46
--- NOTE | 2024-10-22 23:45 | NUR ---
SHIFT SUMMARY NEURO: A/OX4, GENERALIZED WEAKNESS. CARDIAC: SINUS, +1 BLE EDEMA. HEP GTT BOLUSED DT FREQUENT OCCLUSION OF LINE. PT REFUSED NEW LINE AND SCD'S. ARM BOARD PLACED. LUNGS: ON 1-2L NC. EDUCATED PT ON INCENTIVE SPIROMETER, PT ONLY PULLED 500ML. GI/: PT REQUESTING TO USE PUREWICK. NEW PUREWICK PLACED THIS SHIFT.
[2024-10-23 03:04] LABS: BASOPHILS ABSOLUTE AUTO 0.06 K/mm3 (0.00-0.23); BASOPHILS PERCENT AUTO 1 % (0-2); EOSINOPHILS ABSOLUTE AUTO 0.61 K/mm3 (0.00-0.68); EOSINOPHILS PERCENT AUTO 7 % (0-6); Hematocrit 32.5 % (33.0-51.0); Hemoglobin 10.2 g/dL (11.5-16.0); IMMATURE GRAN ABSOLUTE AUTO 0.02 K/mm3 (0.00-0.10); IMMATURE GRAN PERCENT AUTO 0 % (0-1); LYMPHOCYTES ABSOLUTE AUTO 1.79 K/mm3 (0.84-5.20); LYMPHOCYTES PERCENT AUTO 20 % (21-46); MONOCYTES ABSOLUTE AUTO 0.78 K/mm3 (0.16-1.47); MONOCYTES PERCENT AUTO 9 % (4-13); Mean Corpuscular HGB 28.5 pg (26.0-34.0); Mean Corpuscular HGB Conc 31.4 g/dL (31.5-36.5); Mean Corpuscular Volume 91 fL (80-100); Mean Platelet Volume 10.7 fL (9.1-12.4); NEUTROPHILS ABSOLUTE AUTO 5.73 K/mm3 (1.96-9.15); NEUTROPHILS PERCENT AUTO 64 % (41-73); Platelet Count 210 K/mm3 (150-400); RDW Coefficient Variation 15.7 % (11.7-14.2); RDW Standard Deviation 52.3 fL (35.1-46.3); Red Blood Cell Count 3.58 M/mm3 (3.80-5.20); White Blood Cell Count 8.99 K/mm3 (4.00-11.30)
[2024-10-23 03:24] LABS: Albumin, Blood 2.4 g/dL (3.4-5.0); Albumin/Globulin Ratio 0.8 (0.8-1.8); Bilirubin, Total 0.4 mg/dL (0.1-1.0); Bun/Creatinine Ratio 16.6 (12.0-20.0); Calcium, Blood 7.9 mg/dL (8.5-10.1); Creatinine, Blood 1.45 mg/dL (0.40-1.00); Globulin, Blood 3.1 g/dL (2.2-4.0); Total Protein, Blood 5.5 g/dL (6.4-8.2)
[2024-10-23] MEDS ORDERED: Dose Adjust by Pharmacy XX STA ×2 (04:14→04:20)
[2024-10-23 08:14] VITALS: BP 143/99
[2024-10-23 11:29] VITALS: BP 157/58
--- NOTE | 2024-10-23 16:48 | NUR ---
DISCHARGE SUMMARY PATIENT AOX4 ABLE TO MAKE NEEDS KNOWN. SHE DENIES CP AND SOB. SHE WAS ON HEPARIN GTT PRIOR TO GOING TO THORACENTESIS YESTERDAY AND RESUMED TO HEPARIN GTT AFTER COMPLETING IT. DRESSING FROM [facility] ON LEFT REAR CHEST CDI. SHE IS VOIDING WITH THE PUREWICK AND HAD A BM TODAY. SHE HAD REPEAT CXR TODAY PT EVAL AND HOME O2 SETUP. DISCHAGE INSTRUCTIONS EXPLAINED TO HER AND CAREGIVER THEY UNDERSTAND AND HAVE NO FURTHER QUESTIONS. IV WAS REMOVED SHE WAS WHEELCHAIRED OUT TO HER VEHICLE AT 16:45
== END 2024-10-23 18:26 | disposition home or self-care (01) | DRG 280 ==
LOC: ER 18:43 → PCU 18:44 → ERHOLD 18:44 → PCU 10-21 03:54
PROVIDERS: Family Medicine; Student in an Organized Health Care Education/Training Program; ADMIT Student in an Organized Health Care Education/Training Program
PROC: 0W9B3ZZ Drainage of Left Pleural Cavity, Percutaneous Approach (ICD-10-PCS; principal; 2024-10-22)
DX: I13.0 Hypertensive heart and chronic kidney disease with heart failure and stage 1 through stage 4 chronic kidney disease, or unspecified chronic kidney disease (principal); I50.33 Acute on chronic diastolic (congestive) heart failure; I21.A1 Myocardial infarction type 2; J96.01 Acute respiratory failure with hypoxia; J90 Pleural effusion, not elsewhere classified; E11.22 Type 2 diabetes mellitus with diabetic chronic kidney disease; N18.30 Chronic kidney disease, stage 3 unspecified; K21.9 Gastro-esophageal reflux disease without esophagitis; E78.5 Hyperlipidemia, unspecified; Z86.718 Personal history of other venous thrombosis and embolism; Z79.01 Long term (current) use of anticoagulants; Z86.711 Personal history of pulmonary embolism; G89.29 Other chronic pain; I35.0 Nonrheumatic aortic (valve) stenosis; Z98.890 Other specified postprocedural states; Z88.5 Allergy status to narcotic agent; M19.90 Unspecified osteoarthritis, unspecified site; Z90.710 Acquired absence of both cervix and uterus; Z99.81 Dependence on supplemental oxygen
CPT/HCPCS: 0241U; 32555; 36415; 71045; 71046; 71260; 80053; 82042; 82945; 82947; 83615; 83735; 83880; 83986; 84145; 84157; 84484; 85025; 85379; 85610; 85730; 89051; 93005; 93010; 94761; 94762; 96365-59; 96367; 96375; 97161; 97530; 99285-25; A9270; C8929; G0378; J0456; J0696; J1644; J1815; J1940; J7050; Q9957; Q9967

== ENCOUNTER 2024-11-02 06:14 | Emergency (ER) | payer MEDICARE, BC ==
[~2024-11-02] VITALS: Ht 154.9 cm; Wt 105.2 kg
[~2024-11-02 06:14] MED LIST changes: +Acetaminophen325 M1 PO; +B-COMPLEX WITH1 EAC2 PO; +BISA10S PR; -Furosemide 10 MG/ML 4ML Vial IV SCH; +HUMALOG KW100 UNIT/1 SC; +INSULANI; +INSULANI SC; -Metoprolol Succinate 50 MG TABCR PO SCH; +ONDA4 PO
[2024-11-02 07:46] LABS: BASOPHILS ABSOLUTE AUTO 0.05 K/mm3 (0.00-0.23); BASOPHILS PERCENT AUTO 1 % (0-2); EOSINOPHILS ABSOLUTE AUTO 0.53 K/mm3 (0.00-0.68); EOSINOPHILS PERCENT AUTO 7 % (0-6); Hematocrit 35.7 % (33.0-51.0); Hemoglobin 11.1 g/dL (11.5-16.0); IMMATURE GRAN ABSOLUTE AUTO 0.02 K/mm3 (0.00-0.10); IMMATURE GRAN PERCENT AUTO 0 % (0-1); LYMPHOCYTES ABSOLUTE AUTO 1.78 K/mm3 (0.84-5.20); LYMPHOCYTES PERCENT AUTO 23 % (21-46); MONOCYTES ABSOLUTE AUTO 1.04 K/mm3 (0.16-1.47); MONOCYTES PERCENT AUTO 14 % (4-13); Mean Corpuscular HGB 28.5 pg (26.0-34.0); Mean Corpuscular HGB Conc 31.1 g/dL (31.5-36.5); Mean Corpuscular Volume 92 fL (80-100); Mean Platelet Volume 11.2 fL (9.1-12.4); NEUTROPHILS ABSOLUTE AUTO 4.21 K/mm3 (1.96-9.15); NEUTROPHILS PERCENT AUTO 55 % (41-73); Platelet Count 158 K/mm3 (150-400); RDW Coefficient Variation 15.5 % (11.7-14.2); RDW Standard Deviation 52.3 fL (35.1-46.3); White Blood Cell Count 7.63 K/mm3 (4.00-11.30)
[2024-11-02 07:54] LABS: Prothrombin Time Results 10.7 Sec (9.7-11.5)
[2024-11-02 07:59] LABS: Albumin, Blood 2.6 g/dL (3.4-5.0); Albumin/Globulin Ratio 0.8 (0.8-1.8); Bilirubin, Total 0.3 mg/dL (0.1-1.0); Bun/Creatinine Ratio 19.3 (12.0-20.0); Calcium, Blood 8.3 mg/dL (8.5-10.1); Creatinine, Blood 1.14 mg/dL (0.40-1.00); Globulin, Blood 3.3 g/dL (2.2-4.0); Potassium, Blood 3.9 mmol/L (3.5-5.5); Total Protein, Blood 5.9 g/dL (6.4-8.2)
[2024-11-02] MEDS ORDERED: Albuterol 2.5 MG/3 ML VIAL INH SCH (09:15)
[2024-11-02] MEDS ORDERED: MethylPREDNISolone Sod Succ 125 MG Vial IV ONE (09:15)
[2024-11-02 12:01] LABS: Influenza A, PCR NEGATIVE (NEGATIVE); Influenza B, PCR NEGATIVE (NEGATIVE); SARS-Cov-2 (COVID-19) PCR, MMC NEGATIVE (NEGATIVE)
[2024-11-02 12:47] LABS: Resp Syncytial Virus, PCR POSITIVE (NEGATIVE)
[2024-11-02 14:15] VITALS: BP 153/94
== END 2024-11-02 14:37 | disposition home or self-care (01) ==
LOC: ER 06:14
PROVIDERS: Emergency Medicine
DX: J90 Pleural effusion, not elsewhere classified (principal); B97.4 Respiratory syncytial virus as the cause of diseases classified elsewhere
CPT/HCPCS: 0241U; 71045; 80053; 83880; 85025; 85610; 85730; 93005; 93010; 94644; 94664; 96374; 99285-25; J2919